=== PATIENT | female | born 1945 | race Caucasian/White ===

== ENCOUNTER → 2016-10-06 | Outpatient (CLI) | payer OTHER, MEDICARE ==
[~2016-10-06] MED LIST: AMLO5TAB2 PO; AMOX1TAB11 PO; ASPI81TA45 PO; FAMO20TA27 PO; FLUT1DIS26 IH; GLYB5TAB6 PO; HUM100VI15 SQ; METO25TA2 PO; Prednisone PO; SIMV40TA PO
== END ==
LOC: RAD 15:13
PROVIDERS: ATTEND Internal Medicine Cardiovascular Disease
DX: J43.8 Other emphysema (principal); E13.9 Other specified diabetes mellitus without complications; I10 Essential (primary) hypertension; E78.4 Other hyperlipidemia; I73.9 Peripheral vascular disease, unspecified; R06.02 Shortness of breath
CPT/HCPCS: 93923

== ENCOUNTER → 2018-06-17 | Outpatient (CLI) | payer OTHER, MEDICARE ==
--- NOTE | 2018-06-17 10:50 | Diagnostic Imaging Report ---
INDICATION: Routine screening. COMPARISON is made with prior mammogram from 04/16/2016 and 02/11/2015. 2-D and 3-D bilateral screening mammography was performed with CAD. FINDINGS: Both breasts remain heterogeneously dense, limiting the sensitivity of mammography. Benign-appearing calcifications are noted throughout both breasts. Bilateral nodular densities appear stable. No dominant mass or malignant-appearing microcalcifications are seen. The axillae are unremarkable. IMPRESSION: BI-RADS category 2. No mammographic features suspicious for malignancy are identified. Dictated by: Dictated on workstation # [id number]
== END ==
LOC: RAD 07:41
PROVIDERS: ATTEND Internal Medicine
DX: Z12.31 Encounter for screening mammogram for malignant neoplasm of breast (principal)
CPT/HCPCS: 77067

== ENCOUNTER 2018-07-06 14:21 | Outpatient (CLI) | payer OTHER, MEDICARE ==
[~2018-07-06] VITALS: Ht 170.2 cm; Wt 94.8 kg
[2018-07-06] MEDS ORDERED: INSU100I34 SQ (14:41)
[2018-07-06] MEDS ORDERED: INSU200I SQ (14:41)
[2018-07-06] MEDS ORDERED: SIMV40TA4 PO (14:41)
[2018-07-06] MEDS ORDERED: METO-333 PO (14:41)
[2018-07-06] MEDS ORDERED: FENO160T12 PO (14:41)
[2018-07-06] MEDS ORDERED: LISI-552 PO (14:41)
[2018-07-06] MEDS ORDERED: OMEP40CA36 PO (14:41)
== END 2018-07-06 14:42 | disposition home or self-care (01) ==
LOC: PREOP 14:21
PROVIDERS: ATTEND Surgery
DX: Z01.818 Encounter for other preprocedural examination (principal)

== ENCOUNTER 2018-07-12 08:53 | Day surgery (SDC) | payer OTHER, MEDICARE ==
[~2018-07-12] VITALS: Ht 170.2 cm; Wt 94.8 kg
[~2018-07-12 08:53] MED LIST changes: +FENO160T12 PO; +INSU100I34 SQ; +INSU200I SQ; +LISI-552 PO; +METO-333 PO; +OMEP40CA36 PO; +SIMV40TA4 PO
--- OUTSIDE RECORDS SUMMARY | 2018-07-12 08:58 | XMS REPORT | Clinical Summary ---
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 Active 10/16 Donna Cadena Diabetes mellitus without mention of complication, type I [juvenile type], not stated as uncontrolled HYPERTENSION 401.1 Active Donna Cadena Benign essential hypertension HYPERCHOLESTEROLEMIA 272.0 Active Donna Cadena Pure hypercholesterolemia ADENOCARCINOMA, COLON 153.9 Active Donna Cadena Malignant neoplasm of colon, unspecified CORONARY ATHEROSCLEROSIS, [place] VESSEL 414.01 Active Donna Cadena Coronary atherosclerosis of [place] coronary artery CHEST PAIN, ATYPICAL 786.59 Resolved Donna Cadena Other chest pain DYSPNEA 786.09 Active Donna Cadena Other dyspnea and respiratory abnormality BACK PAIN 724.5 Active Donna Cadena Backache, unspecified ABDOMINAL AORTIC ANEURYSM WITHOUT MENTION OF RUPTURE 441.4 Resolved Donna Cadena Abdominal aortic aneurysm without mention of rupture COUGH 786.2 Resolved Donna Cadena Cough BRONCHITIS, ACUTE 466.0 Resolved Donna Yessenia Cadena Acute bronchitis Medication List Medication Instructions Start Date Stop Date Generic Name NDC Status Provider Patient Instruction LASIX 20 MG TAB 1 PO Daily prn swelling FUROSEMIDE 55384431099 Active Donna Yessenia Cadena NOVOLOG MIX 70/30 (70-30) 100 UNIT/ML SUSP 65 units BID and 20 units at noon INSULIN ASPART PROT & ASPART 69658338396 Active Donnahelene Cadena TUSSIONEX PENNKINETIC ER 10-8 MG/5ML LQCR 1 tsp PO BID prn cough HYDROCOD POLST-CHLORPHEN POLST 32187605235 No Longer Active Donnahelene Cadena PREDNISONE 10 MG TAB 2 PO at one time once daily for 5 days 01/05 PREDNISONE 95063310908 No Longer Active Donna Yessenia Cadena CEFDINIR 300 MG CAPS 1 PO BID CEFDINIR 58205072560 No Longer Active Donna Yessenia Cadena GABAPENTIN 100 MG CAPS 1 PO TID GABAPENTIN 07901094236 Active Donnahelene Cadena GLIPIZIDE ER 5 MG [id number] 2 PO once daily GLIPIZIDE 41119239318 Active Donna Cadena AMOXICILLIN-POT CLAVULANATE 500-125 MG TABS 1 PO BID WIITH MEALS X 5 DAYS AMOXICILLIN-POT CLAVULANATE 69270573134 No Longer Active Donna Cadena PREDNISONE 10 MG TABS 60MG DAILY X 1 DAY, THEN 50MG DAILY X 1, THEN 40MG DAILY X 1, THEN 30MG DAILY X 1, THEN 20MG DAILY X 1, THEN 10MG DAILY X 1 10/18 PREDNISONE 83845458225 No Longer Active Donnahelene Cadena ADVAIR DISKUS 250-50 MCG/DOSE AEPB 1 PUFF BID FLUTICASONE-SALMETEROL 81725740287 No Longer Active Donna Yessenia Cadena ADVAIR DISKUS 250-50 MCG/DOSE MISC 1 Puff BID FLUTICASONE- SALMETEROL 97334388337 Active Donna Cadena PROAIR HFA 108 (90 BASE) MCG/ACT AERS 2 puff Q4 hrs prn wheezing and shortness of breath ALBUTEROL SULFATE 67549082043 Active Donna Cadean FLUTICASONE PROPIONATE 50 MCG/ACT SUSP 1 PUFF BID FLUTICASONE PROPIONATE 33185723541 No Longer Active Donna Cadena SIMVASTATIN 40 MG TABS 1 PO DAILY SIMVASTATIN 86860096396 Active Donna Cadena FAMOTIDINE 20 MG TABS 1 PO BID FAMOTIDINE 08355795209 Active Donna Cadena AMLODIPINE BESYLATE 5 MG TABS 1 PO AT HS AMLODIPINE BESYLATE 99708876329 Active Judith Reilly ASPIRIN 81 MG TAB 1 PO DAILY ASPIRIN 08286157607 Active Donna Cadena METOPROLOL TARTRATE 25 MG TABS 1 PO BID METOPROLOL TARTRATE 75628426524 Active Judith Reilly GLYBURIDE 5 MG TABS TAKE 2 TABS PO BID GLYBURIDE 13488528908 No Longer Active Donna Cadena Immunizations Vaccine Administration Date Value Standard Description pneumococcal immunization administered Done pneumococcal polysaccharide vaccine, 23 valent Influenza vaccine given done influenza virus vaccine, unspecified formulation Vital Signs Date Name Value Unit Range Description blood pressure, diastolic - 8462-4 72 mm[Hg] BP [place] blood pressure, systolic - 8480-6 134 mm[Hg] BP sys pulse rate E&M - 8867-4 80 /min Heart rate respiratory rate E&M - 9279-1 14 /min Resp rate temperature E&M 98.0 [degF] Body temperature weight E&M - 3141-9 219 [lb_av] Weight Measured blood pressure, diastolic - 8462-4 78 mm[Hg] BP [place] blood pressure, systolic - 8480-6 137 mm[Hg] BP sys pulse rate E&M - 8867-4 102 /min Heart rate respiratory rate E&M - 9279-1 14 /min Resp rate temperature E&M 98.1 [degF] Body temperature weight E&M - 3141-9 211 [lb_av] Weight Measured blood pressure, diastolic - 8462-4 76 mm[Hg] BP [place] blood pressure, systolic - 8480-6 134 mm[Hg] BP sys pulse rate E&M - 8867-4 68 /min Heart rate respiratory rate E&M - 9279-1 14 /min Resp rate weight E&M - 3141-9 220 [lb_av] Weight Measured blood pressure, diastolic - 8462-4 72 mm[Hg] BP [place] blood pressure, systolic - 8480-6 138 mm[Hg] BP sys pulse rate E&M - 8867-4 78 /min Heart rate respiratory rate E&M - 9279-1 14 /min Resp rate temperature E&M 98.2 [degF] Body temperature weight E&M - 3141-9 218 [lb_av] Weight Measured blood pressure, diastolic - 8462-4 70 mm[Hg] BP [place] blood pressure, systolic - 8480-6 160 mm[Hg] BP sys height E&M - 8302-2 67 [in_us] Bdy height pulse rate E&M - 8867-4 80 /min Heart rate respiratory rate E&M - 9279-1 14 /min Resp rate weight E&M - 3141-9 220 [lb_av] Weight Measured Diagnostic Results Date Name Value Unit Range Description Clinical Lists Update: BMP,HGA1C - Chemistry calcium, serum 8.4 mg/dL chloride, serum 107 mmol/L carbon dioxide, venous blood 21 mmol/L creatinine, serum 0.84 mg/dL urea nitrogen, blood 14 mg/dL potassium, serum 3.9 mmol/L sodium, serum 138 mmol/L glucose, plasma fasting 223 mg/dL Estimated Glomerular Filtration Rate (calc) >60 mL/min/1.73m2 hemoglobin A1C, blood, as % of total hemoglobin 8.5 % Clinical Lists Update: CBC,CMP,FLP,TSH,HGA1C - Chemistry thyroid stimulating hormone, serum 2.02 u[iU]/mL hemoglobin A1C, blood, as % of total hemoglobin 9.9 % HDL cholesterol, serum 29.0 mg/dL creatinine, serum 1.1 mg/dL carbon dioxide, venous blood 28.0 mmol/L cholesterol, serum 129 mg/dL chloride, serum 100 mmol/L calcium, serum 9.0 mg/dL urea nitrogen, blood 15 mg/dL alkaline phosphatase, serum 86 U/L albumin, serum 3.8 g/dL potassium, serum 4.2 mmol/L protein, total, serum 6.5 g/dL aspartate aminotransferase (SGOT), serum 15 U/L alanine aminotransferase (SGPT), serum 15 U/L bilirubin, serum, total 0.4 mg/dL triglyceride, serum, fasting 426 mg/dL sodium, serum 134 mmol/L anion gap, serum 10 cholesterol/HDL ratio, serum, percent 4.4 Estimated Glomerular Filtration Rate (calc) 50 mL/min/1.73m2 glucose, plasma fasting 329 mg/dL Clinical Lists Update: CBC,CMP,FLP,TSH,HGA1C - Hematology red blood cell distribution width 14.9 % mean corpuscular volume, RBC 89 fL leukocyte count, blood 7.9 10*3/mm3 erythrocyte (RBC) count 4.56 10*6/mm3 platelet count 270 10*3/mm3 hemoglobin, blood 12.9 g/dL hematocrit, blood 41 % Clinical Lists Update: [facility] - Chemistry very low density lipoproteins 105 mg/dL triglyceride, serum, fasting 525 mg/dL bilirubin, serum, total 0.4 mg/dL alanine aminotransferase (SGPT), serum 18 U/L aspartate aminotransferase (SGOT), serum 17 U/L protein, total, serum 7.1 g/dL LDL cholesterol, serum 54 mg/dL thyroid stimulating hormone, serum 2.30 u[iU]/mL HDL cholesterol, serum 24 mg/dL cholesterol, serum 176 mg/dL alkaline phosphatase, serum 89 U/L albumin, serum 3.7 g/dL Clinical Lists Update: IN [facility] - Coagulation international normalized ratio (INR) 1.0 prothrombin time (patient) 12.7 s Clinical Lists Update: [facility] - Hematology red blood cell distribution width 12.7 % platelet count 218 10*3/mm3 erythrocyte (RBC) count 4.29 10*6/mm3 hematocrit, blood 38 % hemoglobin, blood 12.5 g/dL mean corpuscular volume, RBC 87 fL leukocyte count, blood 8.5 10*3/mm3 Clinical Lists Update: IN [facility] - Urinalysis pH, urine, semiquantitative 5 nitrite, urine, semiquantitative neg ketones, urine, by test strip 3+ bilirubin, urine neg glucose, urine, semiquantitative neg specific gravity, urine 1.015 urobilinogen, urine, semiquantitative (dipstick) normal appearance, urine Clear Yellow WBC urine on microscopy 10-25 {Cells}/[HPF] RBC urine by microscopy none bacteria, urine microscopy large protein, urine, semiquantitative (dipstick) 1+ mucus on urinalysis neg blood in urine (hemoglobin) by dipstick 1+ epithelial cells, urine 0-2 /[LPF] Encounters Code Encounter Date Provider Facility CPT-42740 Ofc Vst, Est Level III 16:52:20 CDT Donna Cadena DO, FACMaura CPT-09148 Ofc Vst, Est Level III 20:32:35 CDT Donna Cadena DO FACP CPT-97779 Ofc Vst, Est Level IV 17:23:36 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
--- OUTSIDE RECORDS SUMMARY | 2018-07-12 08:59 | XMS REPORT | Clinical Summary ---
Author Author User, [employer] Donna Cadena DO, FACP Address Unknown Phone [...] Malignant neoplasm of colon, unspecified CORONARY ATHEROSCLEROSIS, [place] VESSEL 414.01 Active Donna Cadena Coronary atherosclerosis of [place] coronary artery CHEST PAIN, ATYPICAL 786.59 Resolved Donna Cadena Other chest pain DYSPNEA 786.09 Active Donna Cadena Other dyspnea and respiratory abnormality BACK PAIN 724.5 Active Donna Cadena Backache, unspecified ABDOMINAL AORTIC ANEURYSM WITHOUT MENTION OF RUPTURE 441.4 Resolved Donna Cadena Abdominal aortic aneurysm without mention of rupture COUGH 786.2 Resolved Donna Cadena Cough BRONCHITIS, ACUTE 466.0 Resolved Donna Cadena Acute bronchitis Medication List Medication Instructions Start Date Stop Date Generic Name NDC Status Provider Patient Instruction LASIX 20 MG TAB 1 PO Daily prn swelling FUROSEMIDE 73383570414 Active Donna Cadena NOVOLOG MIX 70/30 (70-30) 100 UNIT/ML SUSP 65 units BID and 20 units at noon INSULIN ASPART PROT & ASPART 60978589198 Active Donna Cadena TUSSIONEX PENNKINETIC ER 10-8 MG/5ML LQCR 1 tsp PO BID prn cough HYDROCOD POLST-CHLORPHEN POLST 63811293238 No Longer Active Donna Cadena PREDNISONE 10 MG TAB 2 PO at one time once daily for 5 days 01/05 PREDNISONE 81391999292 No Longer Active Donna Cadena CEFDINIR 300 MG CAPS 1 PO BID CEFDINIR 17367505236 No Longer Active Donna Cadena GABAPENTIN 100 MG CAPS 1 PO TID GABAPENTIN 52023207803 Active Judith Reilly GLIPIZIDE ER 5 MG [id number] 2 PO once daily GLIPIZIDE 90942594906 Active Donna Cadena AMOXICILLIN-POT CLAVULANATE 500-125 MG TABS 1 PO BID WIITH MEALS X 5 DAYS AMOXICILLIN-POT CLAVULANATE 78266076583 No Longer Active Donna Cadena PREDNISONE 10 MG TABS 60MG DAILY X 1 DAY, THEN 50MG DAILY X 1, THEN 40MG DAILY X 1, THEN 30MG DAILY X 1, THEN 20MG DAILY X 1, THEN 10MG DAILY X 1 10/18 PREDNISONE 74352817626 No Longer Active Donna Cadena ADVAIR DISKUS 250-50 MCG/DOSE AEPB 1 PUFF BID FLUTICASONE-SALMETEROL 46634593621 No Longer Active Donna Cadena ADVAIR DISKUS 250-50 MCG/DOSE MISC 1 Puff BID FLUTICASONE- SALMETEROL 85807280301 Active Donna Cadena PROAIR HFA 108 (90 BASE) MCG/ACT AERS 2 puff Q4 hrs prn wheezing and shortness of breath ALBUTEROL SULFATE 44323032611 Active Donna Cadena FLUTICASONE PROPIONATE 50 MCG/ACT SUSP 1 PUFF BID FLUTICASONE PROPIONATE 77936482631 No Longer Active Donna Cadena SIMVASTATIN 40 MG TABS 1 PO DAILY SIMVASTATIN 89504528951 Active oDnna Cadena FAMOTIDINE 20 MG TABS 1 PO BID FAMOTIDINE 58579443897 Active Donna Cadena AMLODIPINE BESYLATE 5 MG TABS 1 PO AT HS AMLODIPINE BESYLATE 60661015859 Active Judith Reilly ASPIRIN 81 MG TAB 1 PO DAILY ASPIRIN 52134236811 Active Donna Cadena METOPROLOL TARTRATE 25 MG TABS 1 PO BID METOPROLOL TARTRATE 55776056838 Active Judith Reilly GLYBURIDE 5 MG TABS TAKE 2 TABS PO BID GLYBURIDE 67583047690 No Longer Active Donna Cadena Immunizations Vaccine [...] Description Clinical Lists Update: BMP,HGA1C - Chemistry Estimated Glomerular Filtration Rate (calc) >60 mL/min/1.73m2 glucose, plasma fasting 223 mg/dL sodium, serum 138 mmol/L potassium, serum 3.9 mmol/L urea nitrogen, blood 14 mg/dL creatinine, serum 0.84 mg/dL carbon dioxide, venous blood 21 mmol/L chloride, serum 107 mmol/L calcium, serum 8.4 mg/dL hemoglobin A1C, blood, as % of total hemoglobin 8.5 % Clinical Lists Update: CBC,CMP,FLP,TSH,HGA1C - Chemistry Estimated Glomerular Filtration Rate (calc) 50 mL/min/1.73m2 glucose, plasma fasting 329 mg/dL cholesterol/HDL ratio, serum, percent 4.4 anion gap, serum 10 sodium, serum 134 mmol/L triglyceride, serum, fasting 426 mg/dL bilirubin, serum, total 0.4 mg/dL alanine aminotransferase (SGPT), serum 15 U/L aspartate aminotransferase (SGOT), serum 15 U/L protein, total, serum 6.5 g/dL potassium, serum 4.2 mmol/L thyroid stimulating hormone, serum 2.02 u[iU]/mL hemoglobin A1C, blood, as % of total hemoglobin 9.9 % HDL cholesterol, serum 29.0 mg/dL creatinine, serum 1.1 mg/dL carbon dioxide, venous blood 28.0 mmol/L cholesterol, serum 129 mg/dL chloride, serum 100 mmol/L calcium, serum 9.0 mg/dL urea nitrogen, blood 15 mg/dL alkaline phosphatase, serum 86 U/L albumin, serum 3.8 g/dL Clinical Lists Update: CBC,CMP,FLP,TSH,HGA1C - Hematology mean corpuscular volume, RBC 89 fL leukocyte count, blood 7.9 10*3/mm3 red blood cell distribution width 14.9 % erythrocyte (RBC) count 4.56 10*6/mm3 platelet count 270 10*3/mm3 hemoglobin, blood 12.9 g/dL hematocrit, blood 41 % Clinical Lists Update: IN PT LABS - Chemistry HDL cholesterol, serum 24 mg/dL cholesterol, serum 176 mg/dL alkaline phosphatase, serum 89 U/L albumin, serum 3.7 g/dL thyroid stimulating hormone, serum 2.30 u[iU]/mL LDL cholesterol, serum 54 mg/dL protein, total, serum 7.1 g/dL aspartate aminotransferase (SGOT), serum 17 U/L alanine aminotransferase (SGPT), serum 18 U/L bilirubin, serum, total 0.4 mg/dL very low density lipoproteins 105 mg/dL triglyceride, serum, fasting 525 mg/dL Clinical Lists Update: IN PT LABS - Coagulation international normalized ratio (INR) 1.0 prothrombin time (patient) 12.7 s Clinical Lists Update: IN PT LABS - Hematology red blood cell distribution width 12.7 % hemoglobin, blood 12.5 g/dL mean corpuscular volume, RBC 87 fL hematocrit, blood 38 % leukocyte count, blood 8.5 10*3/mm3 platelet count 218 10*3/mm3 erythrocyte (RBC) count 4.29 10*6/mm3 Clinical Lists Update: IN PT LABS - Urinalysis pH, urine, semiquantitative 5 nitrite, urine, semiquantitative neg ketones, urine, by test strip 3+ bilirubin, urine neg glucose, urine, semiquantitative neg specific gravity, urine 1.015 urobilinogen, urine, semiquantitative (dipstick) normal appearance, urine Clear Yellow WBC urine on microscopy 10-25 {Cells}/[HPF] RBC urine by microscopy none bacteria, urine microscopy large mucus on urinalysis neg blood in urine (hemoglobin) by dipstick 1+ protein, urine, semiquantitative (dipstick) 1+ epithelial cells, urine 0-2 /[LPF] Encounters Code Encounter Date Provider Facility CPT-90335 Ofc Vst, Est Level III 16:52:20 CDT Donna Cadena DO, FACP CPT-42475 Ofc Vst, Est Level III 20:32:35 CDT Donna Cadena DO, FACP CPT-36774 Ofc Vst, Est Level IV 17:23:36 [employer] Donna Cadena DO, FACP CPT-72505 Ofc Vst, New Level IV 17:25:17 [employer] Donna Cadena DO, FACMaura Procedures Code Procedure Name Date Entry Date Standard Description CPT-G0439 Medicare Annual Wellness Visit 15:27:42 CDT
--- OUTSIDE RECORDS SUMMARY | 2018-07-12 09:01 | XMS REPORT | Clinical Summary ---
Author Author User, [place] Donna Cadena DO, FACP Address Unknown Phone [...] Malignant neoplasm of colon, unspecified CORONARY ATHEROSCLEROSIS, [place] VESSEL 414.01 Active Donna Cadena Coronary atherosclerosis of [place] coronary artery CHEST PAIN, ATYPICAL 786.59 Resolved [...] TAB 1 PO Daily prn swelling FUROSEMIDE 11918319175 Active Donna Cadena NOVOLOG MIX 70/30 (70-30) 100 UNIT/ML SUSP 65 units BID and 20 units at noon INSULIN ASPART PROT & ASPART 53924508436 Active Donna Cadena TUSSIONEX PENNKINETIC ER 10-8 MG/5ML LQCR 1 tsp PO BID prn cough HYDROCOD POLST-CHLORPHEN POLST 99576919932 No Longer Active Donna Cadena PREDNISONE 10 MG TAB 2 PO at one time once daily for 5 days 01/05 PREDNISONE 89661911202 No Longer Active Donna Cadena CEFDINIR 300 MG CAPS 1 PO BID CEFDINIR 69478049008 No Longer Active Donna Cadena GABAPENTIN 100 MG CAPS 1 PO TID GABAPENTIN 76666078406 Active Judith Reilly GLIPIZIDE ER 5 MG [id number] 2 PO once daily GLIPIZIDE 84571763117 Active Donna Cadena AMOXICILLIN-POT CLAVULANATE 500-125 MG TABS 1 PO BID WIITH MEALS X 5 DAYS AMOXICILLIN-POT CLAVULANATE 39094841927 No Longer Active Donna Cadena PREDNISONE 10 MG TABS 60MG DAILY X 1 DAY, THEN 50MG DAILY X 1, THEN 40MG DAILY X 1, THEN 30MG DAILY X 1, THEN 20MG DAILY X 1, THEN 10MG DAILY X 1 10/18 PREDNISONE 45456950350 No Longer Active Donna Cadena ADVAIR DISKUS 250-50 MCG/DOSE AEPB 1 PUFF BID FLUTICASONE-SALMETEROL 62918129105 No Longer Active Donna Cadena ADVAIR DISKUS 250-50 MCG/DOSE MISC 1 Puff BID FLUTICASONE- SALMETEROL 65629235567 Active Donna Cadena PROAIR HFA 108 (90 BASE) MCG/ACT AERS 2 puff Q4 hrs prn wheezing and shortness of breath ALBUTEROL SULFATE 35059636248 Active Donna Cadena FLUTICASONE PROPIONATE 50 MCG/ACT SUSP 1 PUFF BID FLUTICASONE PROPIONATE 49550379548 No Longer Active Donna Cadena SIMVASTATIN 40 MG TABS 1 PO DAILY SIMVASTATIN 44957028902 Active Judith Reilly FAMOTIDINE 20 MG TABS 1 PO BID FAMOTIDINE 18876439127 Active Donna Cadena AMLODIPINE BESYLATE 5 MG TABS 1 PO AT HS AMLODIPINE BESYLATE 75798502644 Active Judith Reilly ASPIRIN 81 MG TAB 1 PO DAILY ASPIRIN 59859255186 Active Donna Cadena METOPROLOL TARTRATE 25 MG TABS 1 PO BID METOPROLOL TARTRATE 89705455331 Active Judith Reilly GLYBURIDE 5 MG TABS TAKE 2 TABS PO BID GLYBURIDE 34635978408 No Longer Active Donna Cadena Immunizations Vaccine [...] /[LPF] Encounters Code Encounter Date Provider Facility CPT-96167 Ofc Vst, Est Level III 16:52:20 CDT Donna Cadena DO, FACMaura CPT-38887 Ofc Vst, Est Level III 20:32:35 CDT Donna Cadena DO, FACP CPT-83340 Ofc Vst, Est Level IV 17:23:36 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
--- OUTSIDE RECORDS SUMMARY | 2018-07-12 09:01 | XMS REPORT | Clinical Summary ---
Author Author User, [employer] Donna Cadena DO, FACP Address Unknown Phone [...] Malignant neoplasm of colon, unspecified CORONARY ATHEROSCLEROSIS, [place] VESSEL 414.01 Active Donna Cadena Coronary atherosclerosis of [place] coronary artery CHEST PAIN, ATYPICAL 786.59 Resolved [...] TAB 1 PO Daily prn swelling FUROSEMIDE 48719772423 Active Donna Cadena NOVOLOG MIX 70/30 (70-30) 100 UNIT/ML SUSP 65 units BID and 20 units at noon INSULIN ASPART PROT & ASPART 42628269318 Active Donna Cadena TUSSIONEX PENNKINETIC ER 10-8 MG/5ML LQCR 1 tsp PO BID prn cough HYDROCOD POLST-CHLORPHEN POLST 32129451024 No Longer Active Donna Cadena PREDNISONE 10 MG TAB 2 PO at one time once daily for 5 days 01/05 PREDNISONE 63159644806 No Longer Active Donna Cadena CEFDINIR 300 MG CAPS 1 PO BID CEFDINIR 57738888965 No Longer Active Donna Cadena GABAPENTIN 100 MG CAPS 1 PO TID GABAPENTIN 19351020247 Active Judith Reilly GLIPIZIDE ER 5 MG [id number] 2 PO once daily GLIPIZIDE 33455596984 Active Donna Cadena AMOXICILLIN-POT CLAVULANATE 500-125 MG TABS 1 PO BID WIITH MEALS X 5 DAYS AMOXICILLIN-POT CLAVULANATE 32830788775 No Longer Active Donna Cadena PREDNISONE 10 MG TABS 60MG DAILY X 1 DAY, THEN 50MG DAILY X 1, THEN 40MG DAILY X 1, THEN 30MG DAILY X 1, THEN 20MG DAILY X 1, THEN 10MG DAILY X 1 10/18 PREDNISONE 52228731359 No Longer Active Donna Cadena ADVAIR DISKUS 250-50 MCG/DOSE AEPB 1 PUFF BID FLUTICASONE-SALMETEROL 47030013206 No Longer Active Donna Cadena ADVAIR DISKUS 250-50 MCG/DOSE MISC 1 Puff BID FLUTICASONE- SALMETEROL 38634859179 Active Donna Cadena PROAIR HFA 108 (90 BASE) MCG/ACT AERS 2 puff Q4 hrs prn wheezing and shortness of breath ALBUTEROL SULFATE 56585615854 Active Donna Cadena FLUTICASONE PROPIONATE 50 MCG/ACT SUSP 1 PUFF BID FLUTICASONE PROPIONATE 79493715019 No Longer Active Donna Cadena SIMVASTATIN 40 MG TABS 1 PO DAILY SIMVASTATIN 55180174990 Active Donna Cadena FAMOTIDINE 20 MG TABS 1 PO BID FAMOTIDINE 51753075985 Active Donna Cadena AMLODIPINE BESYLATE 5 MG TABS 1 PO AT HS AMLODIPINE BESYLATE 21481339574 Active Judith Reilly ASPIRIN 81 MG TAB 1 PO DAILY ASPIRIN 89989913044 Active Donna Cadena METOPROLOL TARTRATE 25 MG TABS 1 PO BID METOPROLOL TARTRATE 60376707514 Active Judith Reilly GLYBURIDE 5 MG TABS TAKE 2 TABS PO BID GLYBURIDE 88366402204 No Longer Active Donna Cadena Immunizations Vaccine [...] /[LPF] Encounters Code Encounter Date Provider Facility CPT-35522 Ofc Vst, Est Level III 16:52:20 CDT Donna Cadena DO, FACP CPT-79721 Ofc Vst, Est Level III 20:32:35 CDT Donna Cadena DO, FACP CPT-38184 Ofc Vst, Est Level IV 17:23:36 [employer] 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
--- OUTSIDE RECORDS SUMMARY | 2018-07-12 09:03 | XMS REPORT | Continuity of Care Document ---
Author Author [facility] Organization [facility] Address Unknown Phone Unavailable Allergies Active Description Code Type Severity Reaction Onset Reported/Identified Relationship to Patient Clinical Status Yes No Known Drug Allergies [id number] Drug Allergy Unknown N/A 10/16/2014 Medications Medication Packaging Start Date Stop Date Route Dosage Sig NOVOLIN 70/30 ORAL 06/09/2013 06/06/2014 ORAL 4 [id number] 55u BID METOPROLOL TARTRATE ORAL 201306/06/2014 ORAL 180 [id number] twice daily NORVASC ORAL 01/22/2014 ORAL 3030 at bedtime ZOCOR ORAL 03/29/2014 ORAL 9090 daily GLYBURIDE ORAL 04/25/2014 06/28/2014 ORAL 445376 twice daily AMLODIPINE BESYLATE ORAL 201307/02/2014 ORAL 3030 at bedtime NOVOLIN 70/30 Subcutaneous 201308/20/2014 Subcutaneous 4 [id number] 55u BID METOPROLOL TARTRATE ORAL 201308/20/2014 ORAL 180 [id number] twice daily SIMVASTATIN Oral 06/25/2014 08/20/2014 Oral 9090 GLYBURIDE ORAL 06/28/2014 08/20/2014 ORAL 333574 twice daily AMLODIPINE BESYLATE ORAL 201307/09/2014 ORAL 3030 at bedtime AMLODIPINE BESYLATE ORAL 201308/20/2014 ORAL 3030 at bedtime SIMVASTATIN Oral 08/20/2014 Oral 9090 daily NOVOLIN 70/30 Subcutaneous 2013 Subcutaneous [id number] 65uBID METOPROLOL TARTRATE ORAL 2013 ORAL 180 [id number] twice daily GLYBURIDE ORAL 08/20/2014 ORAL 068468 twice daily AMLODIPINE BESYLATE ORAL 2013 ORAL 9090 at bedtime Problems Date Dx Coded Attending Type Code Diagnosis Diagnosed By 10/18/2014 JONH CORNELL DO Ot 250.02 DIAB LAILA WO COMPL, TYPE II OR UNSPEC TY 10/18/2014 JONH CORNELL DO Ot 272.0 PURE HYPERCHOLESTEROLEM 10/18/2014 NATY CORNELL DOI Ot 272.1 PURE HYPERGLYCERIDEMIA 10/18/2014 NATY CORNELL DOI Ot 278.00 OBESITY, NOS 10/18/2014 NATY CORNELL DOI Ot 300.29 OTHER ISOLATED OR SPECIFIC PHOBIAS 10/18/2014 JONH CORNELL DO Ot 327.23 OBSTRUCTIVE SLEEP APNEA (ADULT) (PEDIATR 10/18/2014 NATY CORNELL DOI Ot 401.9 HYPERTENSION NOS 10/18/2014 NATY CORNELL DOI Ot 412 OLD MYOCARDIAL INFARCT 10/18/2014 NATY CORNELL DOI Ot 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 10/18/2014 JONH CORNELL DO Ot 491.20 OBSTR CHRONIC BRONCHITIS, W/O EXACERBATI 10/18/2014 NATY CORNELL DOI Ot 493.90 ASTHMA, UNSPECIFIED 10/18/2014 JONH CORNELL DO Ot 530.81 ESOPHAGEAL REFLUX 10/18/2014 JONH CORNELL DO Ot 553.3 DIAPHRAGMATIC HERNIA 10/18/2014 NATY CORNELL DOI Ot 724.5 BACKACHE NOS 10/18/2014 NATY CORNELL DOI Ot 786.59 10/18/2014 JONH CORNELL DO Ot V10.05 HX OF COLONIC MALIGNANCY 10/18/2014 JONH CORNELL DO Ot V15.82 HISTORY OF TOBACCO USE 10/18/2014 JONH CORNELL DO Ot V45.72 ACQRD ABSENCE INTESTINE - LARGE/SMALL 10/18/2014 JONH CORNELL DO Ot V45.77 ACQRD ABSENCE OF GENITAL ORGANS 10/18/2014 JONH CORNELL DO Ot V45.81 AORTOCORONARY BYPASS 10/18/2014 JONH CORNELL DO Ot V58.67 LONG-TERM (CURRENT) USE OF INSULIN 10/18/2014 JONH CORNELL DO Ot V85.34 BODY MASS INDEX 34.0-34.9, ADULT 12/13/2014 Ot 574.20 12/13/2014 Ot 722.52 12/28/2014 JONH CORNELL DO Ot 441.4 01/16/2015 JONH CORNELL DO Ot 441.4 03/06/2015 JONH CORNELL DO Ot V76.12 10/23/2015 RENA PULLIAM, CONRADO L Ot E11.9 11/08/2015 RENA DO, CONRADO L Ot E11.9 11/25/2015 RENA DO, CONRADO L Ot E11.9 TYPE 2 DIABETES MELLITUS WITHOUT COMPLIC 04/16/2016 Ot 574.20 CHOLELITHIASIS NOS 04/16/2016 Ot 722.52 LUMB/ LUMBOSAC DISC DEGEN 04/16/2016 KRAIG PULLIAM JONH Ot 441.4 ABDOM AORTIC ANEURYSM 04/16/2016 KRAIG PULLIAM JONH Ot V76.12 OTH SCREEN MAMMO-MALIGN NEOPLASM OF [place]BALDO 04/16/2016 RENA PULLIAM, CONRADO L Ot E11.9 TYPE 2 DIABETES MELLITUS WITHOUT COMPLIC 04/22/2016 JONH CORNELL DO Ot Z12.31 ENCNTR SCREEN MAMMOGRAM FOR MALIGNANT NE 04/30/2016 Ot 574.20 CHOLELITHIASIS NOS 04/30/2016 Ot 722.52 LUMB/ LUMBOSAC DISC DEGEN 04/30/2016 KRAIG PULLIAM JONH Ot 441.4 ABDOM AORTIC ANEURYSM 04/30/2016 KRAIG PULLIAM JONH Ot V76.12 OTH SCREEN MAMMO-MALIGN NEOPLASM OF [place] 04/30/2016 RENA PULLIAM, CONRADO L Ot E11.9 TYPE 2 DIABETES MELLITUS WITHOUT COMPLIC 04/30/2016 JONH CORNELL DO Ot Z12.31 ENCNTR SCREEN MAMMOGRAM FOR MALIGNANT NE 04/30/2016 KRAIG PULLIAM JONH Ot Z12.31 ENCNTR SCREEN MAMMOGRAM FOR MALIGNANT NE 05/01/2016 NATY CORNELL DOI Ot Z12.31 ENCNTR SCREEN MAMMOGRAM FOR MALIGNANT NE 05/13/2016 KRAIG PULLIAM JONH Ot Z12.31 ENCNTR SCREEN MAMMOGRAM FOR MALIGNANT NE 08/31/2016 DOYLE DO, LOLITA D Ot R10.32 LEFT LOWER QUADRANT PAIN 09/01/2016 DOYLE DO, LOLITA D Ot R10.32 LEFT LOWER QUADRANT PAIN 09/01/2016 DOYLE DO, LOLITA D Ot R10.32 LEFT LOWER QUADRANT PAIN 09/11/2016 DOYLE DO, LOLITA D Ot R10.32 LEFT LOWER QUADRANT PAIN 10/07/2016 SHELLY MCGRATH FACC, LALI BERNARDP CCDS Ot E13.9 OTHER SPECIFIED DIABETES MELLITUS WITHOU 10/07/2016 SHELLY BERNARD, ALI FACP CCDS Ot E78.4 OTHER HYPERLIPIDEMIA 10/07/2016 SHELLY BERNARD, ALI FACP CCDS Ot I10 ESSENTIAL (PRIMARY) HYPERTENSION 10/07/2016 SHELLY MCGRATH [facility], ALI FACP CCDS Ot I73.9 PERIPHERAL VASCULAR DISEASE, UNSPECIFIED 10/07/2016 SHELLY BERNARD, ALI FACP CCDS Ot J43.8 OTHER EMPHYSEMA 10/07/2016 SHELLY MCGRATH [facility], ALI FACP CCDS Ot R06.02 SHORTNESS OF BREATH 10/21/2016 SHELLY MCGRATH [facility], ALI FACP CCDS Ot E13.9 OTHER SPECIFIED DIABETES MELLITUS WITHOU 10/21/2016 SHELLY BERNARD, ALI FACP CCDS Ot E78.4 OTHER HYPERLIPIDEMIA 10/21/2016 SHELLY MCGRATH [facility], ALI FACP CCDS Ot I10 ESSENTIAL (PRIMARY) HYPERTENSION 10/21/2016 SHELLY MCGRATH [facility], ALI FACP CCDS Ot I73.9 PERIPHERAL VASCULAR DISEASE, UNSPECIFIED 10/21/2016 SHELLY MCGRATH [facility], ALI FACP CCDS Ot J43.8 OTHER EMPHYSEMA 10/21/2016 SHELLY MCGRATH [facility], ALI FACP CCDS Ot R06.02 SHORTNESS OF BREATH 11/09/2016 SHELLY MCGRATH [facility], ALI FACP CCDS Ot E13.9 OTHER SPECIFIED DIABETES MELLITUS WITHOU 11/09/2016 SHELLY MCGRATH [facility], ALI FACP CCDS Ot E78.4 OTHER HYPERLIPIDEMIA 11/09/2016 SHELLY MCGRATH [facility], ALI FACP CCDS Ot I10 ESSENTIAL (PRIMARY) HYPERTENSION 11/09/2016 SHELLY MCGRATH [facility], ALI FACP CCDS Ot I73.9 PERIPHERAL VASCULAR DISEASE, UNSPECIFIED 11/09/2016 SHELLY MCGRATH [facility], ALI FACP CCDS Ot J43.8 OTHER EMPHYSEMA 11/09/2016 SHELLY MCGRATH [facility], ALI FACP CCDS Ot R06.02 SHORTNESS OF BREATH 06/17/2018 Ot 574.20 CHOLELITHIASIS NOS 06/17/2018 Ot 722.52 LUMB/ LUMBOSAC DISC DEGEN 06/17/2018 JONH CORNELL DO Ot 441.4 ABDOM AORTIC ANEURYSM 06/17/2018 JONH CORNELL DO Ot V76.12 OTH SCREEN MAMMO-MALIGN NEOPLASM OF [place]BAL[place] 06/17/2018 CONRADO CHASE DO Nhung Ot E11.9 TYPE 2 DIABETES MELLITUS WITHOUT COMPLIC 06/17/2018 JONH CORNELL DO Ot Z12.31 ENCNTR SCREEN MAMMOGRAM FOR MALIGNANT NE 06/17/2018 LOLITA DOYLE DO Ot R10.32 LEFT LOWER QUADRANT PAIN 06/17/2018 SHELLY MCGRATH FACC, ALI FACP CCDS Ot E13.9 OTHER SPECIFIED DIABETES MELLITUS WITHOU 06/17/2018 SHELLY MCGRATH FACC, ALI FACP CCDS Ot E78.4 OTHER HYPERLIPIDEMIA 06/17/2018 SHELLY MCGRATH FACC, ALI FACP CCDS Ot I10 ESSENTIAL (PRIMARY) HYPERTENSION 06/17/2018 SHELLY MCGRATH FACC, ALI FACP CCDS Ot I73.9 PERIPHERAL VASCULAR DISEASE, UNSPECIFIED 06/17/2018 SHELLY MCGRATH FACC, ALI FACP CCDS Ot J43.8 OTHER EMPHYSEMA 06/17/2018 SHELLY MCGRATH FACC, ALI FACP CCDS Ot R06.02 SHORTNESS OF BREATH 06/20/2018 JONH CORNELL DO Ot Z12.31 ENCNTR SCREEN MAMMOGRAM FOR MALIGNANT NE 07/06/2018 LOLITA DOYLE DO Ot Z01.818 ENCOUNTER FOR OTHER PREPROCEDURAL EXAMIN 07/06/2018 LOLITA DOYLE DO Ot Z01.818 ENCOUNTER FOR OTHER PREPROCEDURAL EXAMIN Procedures Code Description Performed By Performed On 37.22 LEFT HEART CARDIAC CATH 10/16/2014 88.42 CONTRAST AORTOGRAM 10/16/2014 88.45 CONTRAST RENAL ARTERIOGR 10/16/2014 88.53 LT HEART ANGIOCARDIOGRAM 10/16/2014 88.56 CORONAR ARTERIOGR-2 CATH 10/16/2014 Results There is no data. Encounters ACCT No. Visit Date/Time Discharge Status Pt. Type Provider Facility Loc./Unit Complaint [id number] 07/06/2018 14:21:00 07/06/2018 14:42:00 DIS Outpatient LOLITA DOYLE DO [facility] PREOP EGD/COLO [id number] 06/17/2018 07:41:00 06/17/2018 23:59:59 CLS Outpatient JONH CORNELL DO [facility] RAD SCREENING [id number] 10/06/2016 15:13:00 10/06/2016 23:59:59 CLS Outpatient SHELLY MCGRATH FACCLALI FACP CCDS [facility] RAD SOB,COPD [id number] 08/28/2016 08:57:00 08/28/2016 23:59:59 CLS Outpatient LOLITA DOYLE DO [facility] RAD ABD PAIN [id number] 04/16/2016 10:02:00 04/16/2016 23:59:59 CLS Outpatient CORNELL DO, JONH [facility] RAD SCREENING [id number] 11/26/2015 10:00:00 11/26/2015 23:59:59 CLS [facility]read[facility] [id number] 08/27/2015 09:52:00 11/25/2015 00:01:00 DIS Outpatient [facility] [id number] 02/11/2015 11:01:00 02/11/2015 23:59:59 CLS Outpatient CORNELL DO, JONH [facility] RAD SCREENING [id number] 01/23/2015 21:00:00 01/23/2015 23:59:59 CLS Preadmit JACK GREY DO [facility] SLEEP SNORING ISCHEMIC HEART DISEASE HTN EXCESSIVE DAYTI [id number] 12/06/2014 06:41:00 12/06/2014 23:59:59 CLS Outpatient CORNELL DO, JONH [facility] RAD ABDOMNIAL AORTIC ANYURSM [id number] 10/16/2014 12:30:00 10/18/2014 12:30:00 DIS Inpatient CORNELL DO, JONH [facility] CSD CHEST PAIN ANGINA [id number] 07/12/2018 11:00:00 PEN Preadmit LOLITA DOYLE DO [facility] ENDO SCREENING/HX COLON CA/GERD [id number] 12/13/2014 13:48:00 Document Registration [id number] 02/11/2015 11:02:01 ACT Document Registration [id number] 08/22/2014 12:02:36 08/22/2014 12:02:38 DIS Outpatient [id number] 08/20/2014 16:08:18 Document Registration [id number] 08/20/2014 16:08:17 Document Registration [id number] 08/20/2014 16:08:16 Document Registration [id number] 08/20/2014 16:08:15 Document Registration [id number] 08/20/2014 13:59:35 Document Registration [id number] 08/20/2014 13:59:34 Document Registration [id number] 08/20/2014 13:59:33 Document Registration [id number] 08/20/2014 13:59:32 Document Registration [id number] 08/20/2014 13:59:31 Document Registration [id number] 08/20/2014 13:59:30 Document Registration [id number] 08/20/2014 13:59:29 Document Registration [id number] 08/20/2014 13:59:28 Document Registration [id number] 08/20/2014 13:59:27 Document Registration [id number] 08/20/2014 13:59:26 Document Registration [id number] 08/20/2014 13:59:25 Document Registration [id number] 08/20/2014 13:59:24 Document Registration [id number] 08/20/2014 13:59:23 Document Registration [id number] 08/20/2014 13:59:22 Document Registration [id number] 08/20/2014 13:59:21 Document Registration [id number] 08/20/2014 13:59:20 Document Registration [id number] 08/20/2014 13:59:19 Document Registration [id number] 08/20/2014 13:59:16 Document Registration [id number] 08/20/2014 13:59:14 Document Registration [id number] 08/20/2014 13:57:47 Document Registration [id number] 08/20/2014 13:57:46 Document Registration [id number] 08/20/2014 13:57:45 Document Registration [id number] 08/20/2014 13:57:44 Document Registration [id number] 08/20/2014 13:57:43 Document Registration [id number] 08/20/2014 13:57:42 Document Registration [id number] 08/20/2014 13:56:30 Document Registration [id number] 08/20/2014 13:56:29 Document Registration [id number] 08/20/2014 13:56:26 Document Registration [id number] 08/20/2014 13:54:08 Document Registration [id number] 08/20/2014 13:54:07 Document Registration [id number] 08/20/2014 13:54:06 Document Registration [id number] 07/09/2014 20:18:53 Document Registration [id number] 07/09/2014 20:18:52 Document Registration [id number] 07/09/2014 20:18:50 Document Registration [id number] 07/09/2014 20:18:49 Document Registration [id number] 07/09/2014 20:18:48 Document Registration [id number] 07/09/2014 20:18:07 Document Registration [id number] 07/09/2014 20:18:06 Document Registration [id number] 07/02/2014 19:16:43 Document Registration [id number] 07/02/2014 19:16:36 Document Registration [id number] 07/02/2014 19:16:28 Document Registration [id number] 07/02/2014 19:16:21 Document Registration [id number] 07/02/2014 19:16:13 Document Registration [id number] 07/02/2014 19:16:06 Document Registration [id number] 07/02/2014 19:15:58 Document Registration [id number] 07/02/2014 19:15:51 Document Registration [id number] 07/02/2014 19:15:35 Document Registration [id number] 06/28/2014 19:16:05 Document Registration [id number] 06/28/2014 19:15:58 Document Registration [id number] 06/28/2014 19:15:50 Document Registration [id number] 06/28/2014 19:15:45 Document Registration [id number] 06/28/2014 19:15:40 Document Registration [id number] 06/28/2014 19:15:35 Document Registration [id number] 06/28/2014 19:15:28 Document Registration [id number] 06/28/2014 19:15:17 Document Registration [id number] 06/28/2014 19:13:51 Document Registration [id number] 06/28/2014 19:13:43 Document Registration [id number] 06/28/2014 19:13:35 Document Registration [id number] 06/25/2014 13:52:20 Document Registration [id number] 06/25/2014 13:52:12 Document Registration [id number] 06/25/2014 13:52:01 Document Registration [id number] 06/06/2014 09:06:06 Document Registration [id number] 06/06/2014 09:05:58 Document Registration [id number] 06/06/2014 09:05:52 Document Registration [id number] 06/06/2014 09:05:47 Document Registration [id number] 06/06/2014 09:05:41 Document Registration [id number] 06/06/2014 09:05:35 Document Registration [id number] 06/06/2014 09:05:28 Document Registration [id number] 06/06/2014 09:05:17 Document Registration [id number] 06/06/2014 09:03:53 Document Registration [id number] 06/06/2014 09:03:46 Document Registration [id number] 06/06/2014 09:03:35 Document Registration [id number] 06/06/2014 09:02:22 Document Registration [id number] 06/06/2014 09:02:16 Document Registration [id number] 06/06/2014 09:02:06 Document Registration [id number] 06/06/2014 09:01:39 Document Registration [id number] 06/06/2014 09:01:32 Document Registration
[2018-07-12] MEDS ORDERED: LACTATED RINGERS 1,000 ML IV STA (09:05)
[2018-07-12] MEDS ORDERED: HURRICAINE EXT TUBE (BENZOCAINE) XX ONE (09:15)
[2018-07-12 09:30] VITALS: BP 144/66
[2018-07-12] MEDS ORDERED: PROPOFOL INJECTION 50 ML IV ONE (09:34)
[2018-07-12] MEDS ORDERED: MIDAZOLAM 2 MG/2 ML (VERSED) VIAL ONE (09:35)
--- NOTE | 2018-07-12 10:08 | Progress Note-Pre Operative ---
Pre-Operative Progress Note H&P Reviewed The H&P was reviewed, patient examined and no changes noted. Date Seen by Provider: Jul 12, 2018 Time Seen by Provider: 10:08 Date H&P Reviewed: Jul 12, 2018 Time H&P Reviewed: : Pre-Operative Diagnosis: history colon cancer, gerd LOLITA DOYLE DO Jul 12, 2018 10:08
--- NOTE | 2018-07-12 10:57 | Progress Note-Post Operative ---
Post-Operative Progess Note Surgeon (s)/Collections Assistant (s) Surgeon LOLITA DOYLE DO Collections Assistant: na Pre-Operative Diagnosis history colon cancer, gerd Post-Operative Diagnosis reflux esophagitis, colon polyps x 3 Procedure & Operative Findings Date of Procedure 07/12/18 Procedure Performed/Findings colonoscopy with hot bx polypectomy x 3 egd c biopsies Anesthesia Type per clinic coordinator Estimated Blood Loss Estimated blood loss (mL): none Specimens/Packing Specimens Removed antrum, ge, descending colon polyp, sigmoid colon polyp x 2 LOLITA DOYLE DO Jul 12, 2018 10:57
--- NOTE | 2018-07-12 11:00 | Discharge Inst-Simple/Standard ---
Discharge Inst-Standard Patient Instructions/Follow Up Plan of Care/Instructions/FU: 2 weeks Carlotta Activity as Tolerated: Yes Discharge Diet: Regular Diet LOLITA DOYLE DO Jul 12, 2018 11:00
[2018-07-12 11:15] VITALS: BP 140/62
[2018-07-12 11:45] VITALS: BP 152/67
[2018-07-12 11:53] VITALS: BP 152/67
--- NOTE | 2018-07-12 13:07 | Anesthesia-General Post-Op ---
MAC Patient Condition Mental Status/LOC: Same as Preop Cardiovascular: Satisfactory Nausea/Vomiting: Absent Respiratory: Satisfactory Pain: Controlled Complications: Absent Post Op Complications Complications None Follow Up Care/Instructions Patient Instructions None needed. Anesthesiology Discharge Order Discharge Order Patient is doing well, no complaints, stable vital signs, no apparent adverse anesthesia problems. No complications reported per nursing. TALHA FAUST CRNA Jul 12, 2018 13:06
--- NOTE | 2018-07-12 15:22 | OPERATIVE REPORT ---
DATE OF SERVICE: 07/12/2018 PREOPERATIVE DIAGNOSES: Gastroesophageal reflux disease and history of colon cancer. POSTOPERATIVE DIAGNOSES: Colon polyps and reflux esophagitis. PROCEDURES: EGD with biopsies, colonoscopy with hot biopsy polypectomy x 3. SURGEON: Lolita Laguerre DO. ANESTHESIA: Per LEAD CLINICAL RESEARCH COORDINATOR. ESTIMATED BLOOD LOSS: None. COMPLICATIONS: None. INDICATIONS: The patient is a 72-year-old female, who has been having some reflux symptoms. She also has history of colon cancer and needs a screening colonoscopy. She understands risks and benefits of the procedure and wished to proceed with procedure. Consent was signed on the chart. DESCRIPTION OF PROCEDURE: The patient was taken to the endoscopy suite and placed in the left lateral recumbent position. Timeout was performed. Scope was inserted in the mouth, down the esophagus, stomach and into the duodenum without difficulty. There were no polyps, masses or ulcerations within the duodenum. Scope was slowly retracted back into the stomach where it was further insufflated. No polyps, masses or ulcerations. No significant erythematous changes. Biopsy of the antrum was obtained. Scope was retroflexed noting no other pathology. Scope was then slowly retracted back into the distal esophagus, which had some slight erythematous changes consistent with reflux esophagitis. Biopsy of the GE junction was obtained. Scope was then slowly retracted back and completely removed. The patient then had digital rectal exam performed. Some slight hemorrhoidal disease. Scope was then inserted and there were no palpable polyps, masses or ulcerations. The scope was then inserted in the rectum and advanced all the way into the end of the right colon where the anastomosis was visualized. There were no polyps, masses or ulcerations in the right colon. The scope was then slowly retracted back. There were no polyps, masses or ulcerations within the transverse colon. Within the descending colon, a small polyp was present, which hot biopsy polypectomy was performed. Scope was continuously retracted back into the sigmoid colon, which had two small polyps, which hot biopsy polypectomy was performed. Scope was continuously retracted back into the rectum, where it was also retroflexed noting no other pathology except for the hemorrhoidal disease. Scope was returned to its normal position, slowly withdrawn until completely removed. The patient tolerated the procedure well without any complications. She was taken to the recovery room in stable condition. RECOMMENDATIONS: The patient will need repeat colonoscopy in 5 years. If she has any problems prior to that, she should be reevaluated at that time. The patient also with her reflux would consider switching her to Protonix if the omeprazole is not giving her any symptoms. We will also await biopsy results. Also with internal hemorrhoids if they are symptomatic, could consider HET treatment. We will discuss all these with her on followup appointment. Job ID: [id number] DocumentID: [id number] Dictated Date: 07/12/2018 11:03:25 [employer] Date: 07/12/2018 15:21:19 Dictated By: LOLITA LAGUERRE DO
== END 2018-07-12 11:53 | disposition home or self-care (01) ==
LOC: ENDO 08:53
PROVIDERS: ATTEND Surgery
DX: Z12.11 Encounter for screening for malignant neoplasm of colon (principal); D12.4 Benign neoplasm of descending colon; D12.5 Benign neoplasm of sigmoid colon; K21.0 Gastro-esophageal reflux disease with esophagitis; Z85.038 Personal history of other malignant neoplasm of large intestine; E11.9 Type 2 diabetes mellitus without complications; I25.10 Atherosclerotic heart disease of native coronary artery without angina pectoris; I10 Essential (primary) hypertension; Z79.4 Long term (current) use of insulin; Z79.899 Other long term (current) drug therapy; Z87.891 Personal history of nicotine dependence; Z95.5 Presence of coronary angioplasty implant and graft; Z98.0 Intestinal bypass and anastomosis status
CPT/HCPCS: 82962; 88305

== ENCOUNTER → 2018-10-04 | Outpatient (CLI) | payer OTHER, MEDICARE ==
--- NOTE | 2018-10-04 09:31 | Diagnostic Imaging Report ---
INDICATION: Epigastric abdominal pain. TECHNIQUE: Multiple grayscale sonographic images were obtained of the right upper quadrant of the abdomen. CORRELATION STUDY: None FINDINGS: LIVER: There is uniform echotexture within the visualized portions of the liver. There is normal, hepatopedal direction of flow within the main portal vein. Liver size 16.4 cm. GALLBLADDER: There is a large, single mobile stone present. This measures approximately 2.5 cm. No significant gallbladder wall thickening and/or pericholecystic fluid. COMMON BILE DUCT: Nondilated at 5-6 mm. PANCREAS: Visualized portion unremarkable. Distal aspect obscured by overlying bowel gas. RIGHT KIDNEY: Measures 11.7 x 6.0 x 5.2 cm. No hydronephrosis. AORTA/IVC: Not well visualized. OTHER: None. IMPRESSION: 1. Large, single mobile gallstone. Dictated by: Dictated on workstation # [id number]
== END ==
LOC: RAD 07:51
PROVIDERS: ATTEND Surgery
DX: K80.20 Calculus of gallbladder without cholecystitis without obstruction (principal)
CPT/HCPCS: 76705

== ENCOUNTER → 2020-06-21 | Outpatient (CLI) | payer MEDICARE, OTHER ==
[~2020-06-21] MED LIST changes: +OMEP40CA27 PO; -OMEP40CA36 PO; +SIMV40TA25 PO; -SIMV40TA4 PO
== END ==
LOC: CARD 13:00
PROVIDERS: ATTEND Internal Medicine Cardiovascular Disease
DX: I25.10 Atherosclerotic heart disease of native coronary artery without angina pectoris (principal); I10 Essential (primary) hypertension; E11.9 Type 2 diabetes mellitus without complications; E78.49 Other hyperlipidemia
CPT/HCPCS: 93306

== ENCOUNTER → 2021-01-07 | Outpatient (CLI) | payer MEDICARE ==
[~2021-01-07] MED LIST changes: -LISI-552 PO; +LISI20TA26 PO
--- NOTE | 2021-01-07 12:29 | Diagnostic Imaging Report ---
INDICATION: Routine screening. Comparison is made with prior mammogram 06/17/2018 and 04/16/2016. 2-D and 3-D bilateral screening mammography was performed with CAD. Both breasts are heterogeneously dense, limiting the sensitivity of mammography. Benign parenchymal and vascular calcifications again noted bilaterally. Circumscribed nodules left breast appears stable. No spiculated mass or malignant appearing microcalcifications are seen. Axillae are unremarkable. IMPRESSION: BI-RADS Category 2 No mammographic features suspicious for malignancy are identified. ACR BI-RADS Category 2: Benign findings. Result letter will be mailed to the patient. Note: At least 10% of breast cancer is not imaged by mammography. Dictated by: Dictated on workstation # [id number]
== END ==
LOC: RAD 10:30
PROVIDERS: ATTEND Nurse Practitioner Family
DX: Z12.31 Encounter for screening mammogram for malignant neoplasm of breast (principal)
CPT/HCPCS: 77063; 77067

== ENCOUNTER → 2021-07-30 | Outpatient (CLI) | payer MEDICARE ==
[~2021-07-30] MED LIST changes: -OMEP40CA27 PO; +OMEP40CA6 PO
--- NOTE | 2021-07-30 09:54 | Diagnostic Imaging Report ---
INDICATION: Abdominal pain PROCEDURE: Ultrasound abdomen complete. TECHNIQUE: Multiple real-time grayscale images were obtained of the abdomen in various projections. There is hepatic steatosis. No focal liver lesion is seen. The gallbladder and bile ducts are normal. The pancreas is normal where seen. The tail is obscured by gas. The spleen and kidneys are normal. The aorta and IVC are normal. There is no ascites. IMPRESSION: Hepatic steatosis. No acute abnormality is seen. Dictated by: Dictated on workstation # [id number]
== END ==
LOC: RAD 08:07
PROVIDERS: ATTEND Surgery
DX: K76.0 Fatty (change of) liver, not elsewhere classified (principal)
CPT/HCPCS: 76700

== ENCOUNTER 2021-08-29 17:36 | Inpatient (IN) | payer MEDICARE ==
[~2021-08-29] VITALS: Ht 170.2 cm; Wt 93.0 kg
[~2021-08-29 17:36] MED LIST changes: -AMLO2.5T4 PO; -ASPI81TA64 PO; -ATOR40TA PO; -CLOP75TA28 PO; -MTP100TCR PO
[2021-08-29] MEDS ORDERED: ASPIRIN 81 MG CHEW (CHILDREN'S ASA) PO ONE (17:45)
[2021-08-29] MEDS ORDERED: NITROGLYCERIN 0.4 MG SL TABS BTL 25'S SL PRN ×2 (17:45→21:30)
--- NOTE | 2021-08-29 17:53 | ED Chest Pain ---
General Stated Complaint: CHEST DISCOMFORT Source: patient History of Present Illness Date Seen by Provider: Aug 29, 2021 Time Seen by Provider: 17:40 Initial Comments PT ARRIVES VIA POV FROM HOME C/O CHEST PAIN AND SHORTNESS OF BREATH--ESPECIALLY WITH ANY EXERTION STATES SHE WOKE UP WEDNESDAY MORNING 08/27/21 AND "JUST COULDN'T BREATHE AT ALL" AND HAD SOME CHEST PAIN --PAIN WAS SEVERE ON WEDNESDAY HAS CONTINUED TO HAVE THESE SYMPTOMS OFF AND ON--RATES PAIN 10/10 AT WORST, IS 2-3/10 NOW PAIN IS IN CENTER OF CHEST, NO RADIATION OF PAIN WENT TO [facility] TODAY FOR THIS PROBLEM, HAD LAB DONE, AND STATES THEY CALLED HER THIS AFTERNOON AND TOLD HER SHE HAD SOME ABNORMAL LAB FINDINGS AND TOLD HER TO COME HERE ( TROPONIN 0.047 ) NO PALPITATIONS NO SWEATS NO NAUSEA/VOMITING NO DIZZINESS OR SYNCOPE NO SWELLING IN LEGS/FEET OR PAIN IN CALVES PT HAS HAD MA WITH STENT X [address] IN [address] AG IN FEBRUARY OF THIS YEAR PT IS FULLY VACCINATED AGAINST COVID, AND HAD BOOSTER SHOT 1 WEEK AGO. [facility], CELY BOWMAN PATTERN CUTTER: DR. AG Allergies and Home Medications Allergies Coded Allergies: No Known Drug Allergies (Unverified , 10/16/14) Patient Home Medication List Home Medication List Reviewed: Yes Fenofibrate (Fenofibrate) 160 Mg Tablet, 160 MG PO DAILY, (Reported) Entered as Reported by: BRENDA ADAN on 07/06/18 1441 Insulin Glargine,Hum.rec.anlog (Basaglar Kwikpen U-100) 100 Unit/1 Ml Insuln.pen, 34 UNIT SQ BID, (Reported) Entered as Reported by: BRENDA ADAN on 07/06/18 144 Insulin Lispro (Humalog Kwikpen) 200 Unit/1 Ml Insuln.pen, 22 UNIT SQ TIDAC, (Reported) Entered as Reported by: BRENDA ADAN on 07/06/18 144 Lisinopril (Lisinopril) 20 Mg Tablet, 20 MG PO DAILY, (Reported) Entered as Reported by: BRENDA ADAN on 07/06/18 144 Metoprolol Tartrate (Metoprolol Tartrate) 25 Mg Tablet, 25 MG PO BID, (Reported) Entered as Reported by: BRENDA ADAN on 07/06/18 1441 Omeprazole (Omeprazole) 40 Mg Capsule.dr, 40 MG PO DAILY, (Reported) Entered as Reported by: BRENDA ADAN on 07/06/18 144 Simvastatin (Simvastatin) 40 Mg Tablet, 40 MG PO HS, (Reported) Entered as Reported by: BRENDA ADAN on 07/06/18 144 Review of Systems Review of Systems Constitutional: no symptoms reported Respiratory: See HPI, SOA With Exertion Cardiovascular: See HPI, Chest Pain; Denies Edema, Denies Irregular Heart Rate, Denies Lightheadedness, Denies Palpitations, Denies Syncope Gastrointestinal: No Symptoms Reported Genitourinary: No Symptoms Reported Musculoskeletal: no symptoms reported Skin: no symptoms reported Psychiatric/Neurological: No Symptoms Reported Endocrine: No Symptoms Reported Hematologic/Lymphatic: No Symptoms Reported Past Rnmsjzi-Hmlidt-Msbtqv Hx Patient Social History Tobacco Use?: Yes (QUIT SMOKING 1989) Smoking Status: Former Smoker Alcohol Use?: No Immunizations Up To Date Tetanus Booster (TDap): Unknown Seasonal Allergies Seasonal Allergies: No Past Medical History Surgeries: Yes Bowel Surgery, Breast, Cardiac, Coronary Stent, Hysterectomy, Oophorectomy Respiratory: No Cardiac: Yes Coronary Artery Disease, Heart Attack, High Cholesterol, Hypertension Neurological: No Reproductive Disorders: No 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 Genitourinary: No Gastrointestinal: Yes (COLON CANCER) Gastroesophageal Reflux, Hiatal Hernia Musculoskeletal: Yes Arthritis, Chronic Back Pain Endocrine: Yes Diabetes, Insulin dep HEENT: No Cancer: Yes Colon Did You Recieve Any Treatments: Yes What Type of Treatment Did You: Surgical Intervention COLON RESECTION 2008 NO CHEMO OR RADIATION Psychosocial: No Integumentary: No Family Medical History Diabetes mellitus G8 SISTER FH: lung cancer 19 MOTHER SOCIAL HISTORY: -QUIT SMOKING IN 1989 -NO ETOH -NO DRUG USE PAST SURGICAL HISTORY: -CARDIAC CATH WITH STENT X 1 IN 2007 -HYSTERECTOMY/BILATERAL SALPINGO-OOPHORECTOMY -COLON RESECTION FOR CANCER 2008 Physical Exam Vital Signs Vital Signs - First Documented 08/29/21 17:39 Temp 36.5 Pulse 93 Resp 17 B/P (MAP) 181/97 (125) O2 Delivery Room Air Capillary Refill : Height, Weight, BMI Height: 5'7.00" Weight: 209lbs. 0.0oz. 94.009504wo; 32.7 BMI Method: General Appearance: No Apparent Distress, WD/WN, Obese Neck: Normal Inspection Respiratory: Chest Non Tender, Normal Breath Sounds, No Accessory Muscle Use, No Respiratory Distress Cardiovascular: Regular Rate, Rhythm, No Edema, No JVD, No Murmur, Normal Peripheral Pulses Gastrointestinal: Non Tender, Soft Extremity: Normal Capillary Refill, Normal Inspection, Normal Range of Motion, Non Tender, No Calf Tenderness, No Pedal Edema Neurologic/Psychiatric: Alert, Oriented x3, No Motor/Sensory Deficits, Normal Mood/Affect, psychologist developmental II-XII Norm as Tested Skin: Normal Color, Warm/Dry Progress/Results/Core Measures Results/Orders Lab Results Laboratory Tests Test 08/29/21 17:50 Range/Units White Blood Count 10.1 4.3-11.0 10^3/uL Red Blood Count 4.85 3.80-5.11 10^6/uL Hemoglobin 14.0 11.5-16.0 g/dL Hematocrit 44 35-52 % Mean Corpuscular Volume 91 80-99 fL Mean Corpuscular Hemoglobin 29 25-34 pg Mean Corpuscular Hemoglobin Concent 32 32-36 g/dL Red Cell Distribution Width 12.7 10.0-14.5 % Platelet Count 292 130-400 10^3/uL Mean Platelet Volume 9.7 9.0-12.2 fL Immature Granulocyte % (Auto) 1 % Neutrophils (%) (Auto) 72 42-75 % Lymphocytes (%) (Auto) 17 12-44 % Monocytes (%) (Auto) 8 0-12 % Eosinophils (%) (Auto) 1 0-10 % Basophils (%) (Auto) 1 0-10 % Neutrophils # (Auto) 7.3 1.8-7.8 10^3/uL Lymphocytes # (Auto) 1.8 1.0-4.0 10^3/uL Monocytes # (Auto) 0.9 0.0-1.0 10^3/uL Eosinophils # (Auto) 0.1 0.0-0.3 10^3/uL Basophils # (Auto) 0.1 0.0-0.1 10^3/uL Immature Granulocyte # (Auto) 0.1 0.0-0.1 10^3/uL Prothrombin Time 13.0 12.2-14.7 SEC INR Comment 1.0 0.8-1.4 Activated Partial Thromboplast Time 31 24-35 SEC Sodium Level 141 135-145 MMOL/L Potassium Level 3.9 3.6-5.0 MMOL/L Chloride Level 106 98-107 MMOL/L Carbon Dioxide Level 23 21-32 MMOL/L Anion Gap 12 5-14 MMOL/L Blood Urea Nitrogen 16 7-18 MG/DL Creatinine 1.29 0.60-1.30 MG/DL Estimat Glomerular Filtration Rate 40 BUN/Creatinine Ratio 12 Glucose Level 179 H 70-105 MG/DL Calcium Level 9.2 8.5-10.1 MG/DL Corrected Calcium 9.3 8.5-10.1 MG/DL Magnesium Level 1.9 1.6-2.4 MG/DL Total Bilirubin 0.3 0.1-1.0 MG/DL Aspartate Amino Transf (AST/SGOT) 23 5-34 U/L Alanine Aminotransferase (ALT/SGPT) 17 0-55 U/L Alkaline Phosphatase 52 40-136 U/L Total Creatine Kinase 138 29-168 U/L Creatine Kinase MB 3.1 <6.6 NG/ML Myoglobin 77.6 10.0-92.0 NG/ML Troponin I 0.062 H <0.028 NG/ML B-Type Natriuretic Peptide 298.1 H <100.0 PG/ML Total Protein 7.4 6.4-8.2 GM/DL Albumin 3.9 3.2-4.5 GM/DL Amylase Level 54 25-125 U/L Lipase 24 8-78 U/L My Orders Orders - JANE GODOY DO Cbc With Automated Diff (08/29/21 17:40) Magnesium (08/29/21 17:40) Chest 1 View, Ap/Pa Only (08/29/21 17:40) Ekg Tracing (08/29/21 17:40) Comprehensive Metabolic Panel (08/29/21 17:40) Myoglobin Serum (08/29/21 17:40) Protime With Inr (08/29/21 17:40) Partial Thromboplastin Time (08/29/21 17:40) O2 (08/29/21 17:40) Monitor-Rhythm Ecg Trace Only (08/29/21 17:40) Ed Iv/Invasive Line Start (08/29/21 17:40) Creatine Kinase (08/29/21 17:40) Creatine Kinase Mb (08/29/21 17:40) Lipase (08/29/21 17:40) Amylase (08/29/21 17:40) Bnp [place] (08/29/21 17:40) Troponin I Yanet (08/29/21 17:40) Nitroglycerin 0.4 Mg Btl 25's (Nitrostat (08/29/21 17:45) Aspirin Chewable Tablet (Baby Aspirin Ch (08/29/21 17:45) Admission Order(Inpt,Obs,Sdc) (08/29/21 18:40) Sequential Compression Device ONCE (08/29/21 18:40) Initiate Admission Nursing Pro .admission (08/29/21 18:40) Enoxaparin Injection (Lovenox Injection) (08/29/21 18:45) Metoprolol Succinate (Xl) Tab (Toprol Xl (08/29/21 18:45) Amlodipine Tablet (Norvasc Tablet) (08/29/21 18:45) Clopidogrel Tablet (Plavix Tablet) (08/29/21 18:45) Metoprolol Succinate (Xl) Tab (Toprol Xl (08/29/21 21:19) Enoxaparin Injection (Lovenox Injection) (08/29/21 21:19) Amlodipine Tablet (Norvasc Tablet) (08/29/21 21:20) Clopidogrel Tablet (Plavix Tablet) (08/29/21 21:20) Medications Given in ED Current Medications Medications Dose Ordered Sig/Kings Route Start Time Stop Time Status Last Admin Dose Admin Amlodipine Besylate 2.5 mg ONCE ONCE PO 08/29/21 18:45 08/29/21 18:46 DC 08/29/21 21:27 2.5 MG Aspirin 324 mg ONCE ONCE PO 08/29/21 17:45 08/29/21 17:46 DC 08/29/21 17:57 324 MG Clopidogrel Bisulfate 300 mg ONCE ONCE PO 08/29/21 18:45 08/29/21 18:46 DC 08/29/21 21:27 300 MG Enoxaparin Sodium 100 mg ONCE ONCE SC 08/29/21 18:45 08/29/21 18:46 DC 08/29/21 21:28 100 MG Metoprolol Succinate 100 mg ONCE ONCE PO 1217/21 18:45 08/29/21 18:46 DC 08/29/21 21:27 100 MG Nitroglycerin 0.4 mg UD PRN SL 08/29/21 17:45 08/29/21 17:57 0.4 MG Vital Signs/I&O 08/29/21 17:39 Temp 36.5 Pulse 93 Resp 17 B/P (MAP) 181/97 (125) O2 Delivery Room Air Progress Progress Note : Progress Note GIVEN ASPIRIN AND NTG X 1--PAIN COMPLETELY RESOLVED UNEVENTFUL ER STAY Initial ECG Impression Date: Aug 29, 2021 Initial ECG Impression Time: 17:35 Initial ECG Rate: 90 Initial ECG Rhythm: Normal Sinus Initial ECG Impression: Nonspecific Changes Diagnostic Imaging Comments CXR--NO ACUTE PROCESS, PER RADIOLOGIST REPORT AT 1840 Reviewed: Reviewed by Me Departure Communication (Admissions) 1834--SPOKE WITH DR. BRAVO, PATTERN CUTTER, ORDERS NOTED, HE WILL SEE PT IN CONSULT, ADMIT TO MEDICINE 1838--SPOKE WITH DR. GUEVARA, ACCEPTS PT FOR ADMIT. WILL DO ADMIT ORDERS Impression Primary Impression: Chest pain Additional Impressions: Elevated troponin IDDM (insulin dependent diabetes mellitus) HTN (hypertension) Presence of stent in coronary artery in patient with coronary artery disease Disposition: ADMITTED INPATIENT Condition: Improved Admissions Decision to Admit Reason: Admit from ER (General) Decision to Admit/Date: Aug 29, 2021 Time/Decision to Admit Time: 18:35 Departure-Patient Inst. Referrals: JONH CORNELL DO (PCP/Family) Primary Care Physician JANE GODOY DO Aug 29, 2021 17:53
[2021-08-29 17:56] LABS: BASOPHILS # (AUTO) 0.1 10^3/uL (0.0-0.1); BASOPHILS % (AUTO) 1 % (0-10); EOSINOPHILS # (AUTO) 0.1 10^3/uL (0.0-0.3); EOSINOPHILS % (AUTO) 1 % (0-10); HEMATOCRIT 44 % (35-52); LYMPHOCYTES # (AUTO) 1.8 10^3/uL (1.0-4.0); LYMPHOCYTES % (AUTO) 17 % (12-44); MEAN CORPUSCULAR HEMOGLOBIN 29 pg (25-34); MEAN CORPUSCULAR HGB CONC 32 g/dL (32-36); MEAN CORPUSCULAR VOLUME 91 fL (80-99); MEAN PLATELET VOLUME 9.7 fL (9.0-12.2); MONOCYTES # (AUTO) 0.9 10^3/uL (0.0-1.0); MONOCYTES % (AUTO) 8 % (0-12); NEUTROPHILS # (AUTO) 7.3 10^3/uL (1.8-7.8); NEUTROPHILS % (AUTO) 72 % (42-75); PLATELET COUNT 292 10^3/uL (130-400); WHITE BLOOD COUNT 10.1 10^3/uL (4.3-11.0)
[2021-08-29 18:09] LABS: ALBUMIN 3.9 GM/DL (3.2-4.5)
[2021-08-29 18:10] LABS: POTASSIUM 3.9 MMOL/L (3.6-5.0)
[2021-08-29 18:11] LABS: CALCIUM 9.2 MG/DL (8.5-10.1)
[2021-08-29 18:12] LABS: TOTAL PROTEIN 7.4 GM/DL (6.4-8.2)
[2021-08-29 18:14] LABS: BILIRUBIN,TOTAL 0.3 MG/DL (0.1-1.0)
[2021-08-29 18:16] LABS: CREATININE SERUM 1.29 MG/DL (0.60-1.30)
--- NOTE | 2021-08-29 18:17 | Diagnostic Imaging Report ---
EXAMINATION: Chest 1 view HISTORY: Chest pain. COMPARISON: 10/17/2014. FINDINGS: The lung volumes are normal. No focal consolidation is seen. No large pleural effusion or pneumothorax is seen. The cardiomediastinal silhouette is normal in size and contour. There is calcified aortic atherosclerotic plaque. No acute osseous abnormality is seen. IMPRESSION: 1. No acute pleuroparenchymal process. Dictated by: Dictated on workstation # [id number]
[2021-08-29 18:18] LABS: MAGNESIUM 1.9 MG/DL (1.6-2.4)
[2021-08-29 18:27] LABS: CREATINE KINASE MB 3.1 NG/ML (<6.6)
[2021-08-29] MEDS ORDERED: meTOprolol SUCCINATE 100 MG (TOPROL XL) TAB PO ONE (18:45)
[2021-08-29] MEDS ORDERED: ENOXAPARIN 100 MG/1 ML (LOVENOX) SYR SC ONE (18:45)
[2021-08-29] MEDS ORDERED: CLOPIDOGREL 300 MG (PLAVIX) TABLET PO ONE ×2 (18:45→21:20)
[2021-08-29] MEDS ORDERED: amLODIPine 2.5MG (NORVASC) TAB PO ONE (18:45)
--- NOTE | 2021-08-29 19:10 | Consultation-Cardiology ---
HPI-Cardiology Cardiology Consultation: Date of Consultation 08/29/21 Time Seen by a Provider: 18:50 Date of Admission Attending Physician Admitting Physician Donna Cadena DO Consulting Physician LALI BRAVO MD, MA, FACP, FACC, FSCAI, CCDS HPI: Chief Complaint: Chest discomfort 75 yo woman with persistent chest pain since 08/27/21, worse with exertion, midsternal or L parasternal, radiating to L shoulder, mild to mod, relieved in the ER with s/l NTG. Notes exertional shortness of breath. Denies palp or synco pe or swelling. Review of Systems-Cardiology Review of Systems Constitutional: malaise, tiredness; No weight loss, No weight gain Eyes: No vision change Ears/Nose/Throat: No ear discharge, No nasal drainage, No recent hearing loss Respiratory: As described under HPI Cardiovascular: As described under HPI Gastrointestinal: No constipation, No diarrhea, No nausea, No vomiting Genitourinary: No dysuria, No hematuria, No urine frequency changes Musculoskeletal: No back pain, No joint pain Skin: No rash, No ulcerations Psychiatric/Neurological: No seizure, No focal weakness, No syncope Hematologic: No bleeding abnormalities EVU-Tmamcg-Ajsnuv Hx Patient Social History Smoking Status: Former Smoker Have you traveled recently?: No Alcohol Use?: No Immunizations Up To Date Tetanus Booster (TDap): Unknown Date of Influenza Vaccine: Jul 05, 2018 Past Medical History PMH As described under Assessment. Family Medical History Family Medical History: Does not report fam h/o early CAD or SCD Family History: Diabetes mellitus G8 SISTER FH: lung cancer 19 MOTHER Allergies and Home Medications Allergies Coded Allergies: No Known Drug Allergies (Unverified , 10/16/14) Patient Home Medication List Home Medication List Reviewed: Yes Fenofibrate (Fenofibrate) 160 Mg Tablet, 160 MG PO DAILY, (Reported) Entered as Reported by: BRENDA ADAN on 07/06/18 1441 Insulin Glargine,Hum.rec.anlog (Basaglar Kwikpen U-100) 100 Unit/1 Ml I nsuln.pen, 34 UNIT SQ BID, (Reported) Entered as Reported by: BRENDA ADAN on 07/06/18 1441 Insulin Lispro (Humalog Kwikpen) 200 Unit/1 Ml Insuln.pen, 22 UNIT SQ TIDAC, (Reported) Entered as Reported by: BRENDA ADAN on 07/06/18 144 Lisinopril (Lisinopril) 20 Mg Tablet, 20 MG PO DAILY, (Reported) Entered as Reported by: BRENDA ADAN on 07/06/18 144 Metoprolol Tartrate (Metoprolol Tartrate) 25 Mg Tablet, 25 MG PO BID, (Reported) Entered as Reported by: BRENDA ADAN on 07/06/18 144 Omeprazole (Omeprazole) 40 Mg Capsule.dr, 40 MG PO DAILY, (Reported) Entered as Reported by: BRENDA ADAN on 07/06/18 144 Simvastatin (Simvastatin) 40 Mg Tablet, 40 MG PO HS, (Reported) Entered as Reported by: BRENDA ADAN on 07/06/18 144 Physical Exam-Cardiology Physical Exam Vital Signs/I&O 08/29/21 17:39 Temp 36.5 Pulse 93 Resp 17 B/P (MAP) 181/97 (125) O2 Delivery Room Air Capillary Refill : Less Than 3 Seconds Constitutional: AAO x 3, well-developed, well-nourished HEENT: hearing is well preserved Neck: carotid pulses are 2 + bilaterally, with good upstrokes Respiratory: No accessory muscle use; other (good bilateral air entry) Cardiovascular: regular rate-rhythm, S1 and S2, systolic murmur (soft LOVE at card basee) Gastrointestinal: No tender; soft; No guarding, No rebound; audible bowel sounds Extremities: No clubbing, No cyanosis, No significant edema Neurologic/Psychiatric: oriented x 3, other (moves all limbs equally) Skin: No rash on exposed areas, No ulcerations on exposed areas Data Review Labs Laboratory Tests 08/29/21 17:50: White Blood Count 10.1, Red Blood Count 4.85, Hemoglobin 14.0, Hematocrit 44, Mean Corpuscular Volume 91, Mean Corpuscular Hemoglobin 29, Mean Corpuscular Hemoglobin Concent 32, Red Cell Distribution Width 12.7, Platelet Count 292, Mean Platelet Volume 9.7, Immature Granulocyte % (Auto) 1, Neutrophils (%) (Auto) 72, Lymphocytes (%) (Auto) 17, Monocytes (%) (Auto) 8, Eosinophils (%) (Auto) 1, Basophils (%) (Auto) 1, Neutrophils # (Auto) 7.3, Lymphocytes # (Auto) 1.8, Monocytes # (Auto) 0.9, Eosinophils # (Auto) 0.1, Basophils # (Auto) 0.1, Immature Granulocyte # (Auto) 0.1, Prothrombin Time 13.0, INR Comment 1.0, Activated Partial Thromboplast Time 31, Sodium Level 141, Potassium Level 3.9, Chloride Level 106, Carbon Dioxide Level 23, Anion Gap 12, Blood Urea Nitrogen 16, Creatinine 1.29, Estimat Glomerular Filtration Rate 40, BUN/Creatinine Ratio 12, Glucose Level 179H, Calcium Level 9.2, Corrected Calcium 9.3, Magnesium Level 1.9, Total Bilirubin 0.3, Aspartate Amino Transf (AST/SGOT) 23, Alanine Aminotransferase (ALT/SGPT) 17, Alkaline Phosphatase 52, Total Creatine Kinase 138, Creatine Kinase MB 3.1, Myoglobin 77.6, Troponin I 0.062H, B-Type Natriuretic Peptide 298.1H, Total Protein 7.4, Albumin 3.9, Amylase Level 54, Li pase 24 Laboratory Tests 08/29/21 17:50 A/P-Cardiology Assessment/Admission Diagnosis CP: consider unstable angina vs ac NSTEMI CAD, h/o cor stent in [place] in 2007 - last card [place] [address] Dowell at this hosp: patent RCA stent, no significant obstructive CAD Hypertension DM II, insulin requiring Elevated BMI of approx 32 Discussion and Recomendations * Treat with DAPT and enoxaparin * Treat with beta-kimberli and amlodipine * Tele * Further recs based on hosp course Clinical Quality Measures AMI/AHF: ASA po Prior to arrival: LALI Navarro MD FACP [facility] CCDS Aug 29, 2021 19:10
[2021-08-29] MEDS ORDERED: ENOXAPARIN 100 MG/1 ML (LOVENOX) SYR ONE (21:19)
[2021-08-29] MEDS ORDERED: meTOproloL SUCCINATE 50 MG (TOPROL XL) TAB PO ONE (21:19)
[2021-08-29] MEDS ORDERED: amLODIPine 5 MG (NORVASC) TAB ONE (21:20)
[2021-08-29] MEDS ORDERED: morphine INJ 4 MG/ML 1 ML (VIAL/SYRINGE) IV PRN (21:30)
[2021-08-29] MEDS ORDERED: ONDANSETRON 4 MG/2 ML (SDV) Z0FRAN IVP PRN (21:30)
[2021-08-29] MEDS ORDERED: PATIENT MAY USE OWN MEDS, ALL PO SCH (21:30)
[2021-08-30] VITALS (7 sets, daily range): BP systolic 119–158; BP diastolic 46–72
[2021-08-30] MEDS: inSUlin ASPART (NovoLOG) 1 UNIT/0.01 ML (CHARGE PER UNIT) SC SCH ×4 (05:24→20:23)
[2021-08-30 06:01] LABS: TRIGLYCERIDES 259 MG/DL (<150); VLDL CHOLESTEROL 52 MG/DL (5-40)
[2021-08-30 06:06] LABS: CHOLESTEROL 162 MG/DL (< 200); HDL CHOLESTEROL 28 MG/DL (40-60)
[2021-08-30] MEDS ORDERED: ENOXAPARIN 100 MG/1 ML (LOVENOX) SYR SC SCH (09:00)
[2021-08-30] MEDS: ASPIRIN 81 MG CHEW (CHILDREN'S ASA) PO SCH (09:17)
[2021-08-30] MEDS: amLODIPine 2.5MG (NORVASC) TAB PO SCH (09:17)
[2021-08-30] MEDS: meTOprolol SUCCINATE 100 MG (TOPROL XL) TAB PO SCH (09:17)
[2021-08-30] MEDS: CLOPIDOGREL 75 MG (PLAVIX) TABLET PO SCH (09:17)
--- NOTE | 2021-08-30 11:13 | History & Physical ---
HPI History of Present Illness: 75 yo female says her primary sent her to the hospital after she told her she had been having difficulty catching her breath for quite some time, which became worse recently and had a severe acute episode on Wed for about 10 minutes. She has had nasal congestion and scratchy throat with occasional dry cough for several days. She has a history of CAD with stenting in the past. This doesn't necessarily feel like chest pain to her, but rather like she can't get a breath. She was found to have elevated troponin and was admitted for further work-up, cardiac cath pending later today. Source: patient Exam Limitations: no limitations Date seen by provider: Aug 30, 2021 Time Seen by Provider: 11:10 Attending Physician Johnathon Machado MD [facility] Center/[facility] [place], Consult Date of Admission Aug 29, 2021 at 21:28 Home Medications Home Medications Reviewed patient Home Medication Reconciliation performed by pharmacy medication reconciliations rd lab technician and/or nursing. Patients Allergies have been reviewed. Allergies Coded Allergies: No Known Drug Allergies (Unverified , 10/16/14) [id number]-Mnejrn Hx Patient Social History Smoking Status: Former Smoker Recent Hopitalizations: No Alcohol Use?: No Have you traveled recently?: No Immunizations Up To Date Tetanus Booster (TDap): Unknown Influenza Vaccine Up-to-Date: No; Not Current First/Initial COVID19 Vaccinat: UNKNOWN DATE Second COVID19 Vaccination Xu: UNKNOWN DATE Third COVID19 Vaccination Date: 08/2021 COVID19 Vaccine Child Care Associate: MODERNA Past Medical History PMHx: CAD HTN DMII HLD AAA CKD3 Colon cancer SurgHx: Coronary artery stenting Hysterectomy Partial colectomy Family Medical History Other Significan Family Hx: SOCIAL HISTORY: -QUIT SMOKING IN 1989 -NO ETOH -NO DRUG USE PAST SURGICAL HISTORY: -CARDIAC CATH WITH STENT X 1 IN 2007 -HYSTERECTOMY/BILATERAL SALPINGO-OOPHORECTOMY -COLON RESECTION FOR CANCER 2009 Family History: Diabetes mellitus G8 SISTER FH: lung cancer 19 MOTHER Review of Systems ([facility]) Constitutional: No fever EENTM: nose congestion Respiratory: cough, dyspnea on exertion Cardiovascular: No chest pain Gastrointestinal: No abdominal pain, No constipation, No diarrhea, No nausea, No vomiting Genitourinary: No dysuria Musculoskeletal: No joint pain, No muscle pain Skin: No rash Psychiatric/Neurological: Denies Anxiety, Denies Depressed Reviewed Test Results Reviewed Test Results Lab Laboratory Tests Test 08/29/21 17:50 08/29/21 22:00 08/30/21 00:50 08/30/21 01:15 Range/Units White Blood Count 10.1 4.3-11.0 10^3/uL Red Blood Count 4.85 3.80-5.11 10^6/uL Hemoglobin 14.0 11.5-16.0 g/dL Hematocrit 44 35-52 % Mean Corpuscular Volume 91 80-99 fL Mean Corpuscular Hemoglobin 29 25-34 pg Mean Corpuscular Hemoglobin Concent 32 32-36 g/dL Red Cell Distribution Width 12.7 10.0-14.5 % Platelet Count 292 130-400 10^3/uL Mean Platelet Volume 9.7 9.0-12.2 fL Immature Granulocyte % (Auto) 1 % Neutrophils (%) (Auto) 72 42-75 % Lymphocytes (%) (Auto) 17 12-44 % Monocytes (%) (Auto) 8 0-12 % Eosinophils (%) (Auto) 1 0-10 % Basophils (%) (Auto) 1 0-10 % Neutrophils # (Auto) 7.3 1.8-7.8 10^3/uL Lymphocytes # (Auto) 1.8 1.0-4.0 10^3/uL Monocytes # (Auto) 0.9 0.0-1.0 10^3/uL Eosinophils # (Auto) 0.1 0.0-0.3 10^3/uL Basophils # (Auto) 0.1 0.0-0.1 10^3/uL Immature Granulocyte # (Auto) 0.1 0.0-0.1 10^3/uL Prothrombin Time 13.0 12.2-14.7 SEC INR Comment 1.0 0.8-1.4 Activated Partial Thromboplast Time 31 24-35 SEC Sodium Level 141 135-145 MMOL/L Potassium Level 3.9 3.6-5.0 MMOL/L Chloride Level 106 98-107 MMOL/L Carbon Dioxide Level 23 21-32 MMOL/L Anion Gap 12 5-14 MMOL/L Blood Urea Nitrogen 16 7-18 MG/DL Creatinine 1.29 0.60-1.30 MG/DL Estimat Glomerular Filtration Rate 40 BUN/Creatinine Ratio 12 Glucose Level 179 H 70-105 MG/DL Calcium Level 9.2 8.5-10.1 MG/DL Corrected Calcium 9.3 8.5-10.1 MG/DL Magnesium Level 1.9 1.6-2.4 MG/DL Total Bilirubin 0.3 0.1-1.0 MG/DL Aspartate Amino Transf (AST/SGOT) 23 5-34 U/L Alanine Aminotransferase (ALT/SGPT) 17 0-55 U/L Alkaline Phosphatase 52 40-136 U/L Total Creatine Kinase 138 29-168 U/L Creatine Kinase MB 3.1 <6.6 NG/ML Myoglobin 77.6 10.0-92.0 NG/ML Troponin I 0.062 H 0.056 H <0.028 NG/ML B-Type Natriuretic Peptide 298.1 H <100.0 PG/ML Total Protein 7.4 6.4-8.2 GM/DL Albumin 3.9 3.2-4.5 GM/DL Amylase Level 54 25-125 U/L Lipase 24 8-78 U/L Glucometer 113 H 195 H 70-110 MG/DL Test 08/30/21 05:22 08/30/21 05:28 Range/Units Glucometer 175 H 70-110 MG/DL Triglycerides Level 259 H <150 MG/DL Cholesterol Level 162 < 200 MG/DL LDL Cholesterol Direct 93 1-129 MG/DL VLDL Cholesterol 52 H 5-40 MG/DL HDL Cholesterol 28 L 40-60 MG/DL Radiology CXR 08/29/21 no acute abnormalities Physical Exam-([facility]) Physical Exam Vital Signs VS - Last 72 Hours, by Label 08/29/21 08/29/21 08/29/21 08/30/21 17:39 21:50 22:12 00:00 Temp 36.5 36.8 Pulse 93 71 74 Resp 17 20 B/P (MAP) 181/97 (125) 119/46 (70) Pulse Ox 92 O2 Delivery Room Air Room Air Room Air 08/30/21 08/30/21 08/30/21 08/30/21 00:00 01:00 04:00 04:00 Temp 37.6 Pulse 72 89 Resp 16 B/P (MAP) 158/72 (100) Pulse Ox 92 O2 Delivery Room Air Room Air Room Air 08/30/21 08/30/21 08/30/21 08/30/21 07:00 08:00 08:00 12:00 Temp 37.0 Pulse 84 86 69 Resp 20 19 B/P (MAP) 144/63 (90) 126/53 (77) Pulse Ox 92 96 O2 Delivery Room Air Room Air Nasal Cannula O2 Flow Rate 2.00 08/30/21 12:00 O2 Delivery Room Air Capillary Refill : Less Than 3 Seconds General Appearance: WD/WN, no apparent distress Respiratory: lungs clear, normal breath sounds Cardiovascular: regular rate, rhythm, no murmur Peripheral Pulses: 2+ Dorsalis Pedis (R), 2+ Left Dors-Pedis (L) Gastrointestinal: normal bowel sounds, non tender, soft Extremities: no pedal edema Neurologic/Psychiatric: alert, normal mood/affect Skin: normal color, warm/dry Assessment/Plan Assessment/Plan Admission Status: Observation (1) Elevated troponin Status: Acute Assessment & Plan: Cardiology consulted, started on treatment dose enoxaparin and DAPT, plan for cath today. (2) Hypertension Status: Chronic Assessment & Plan: Resume home meds, metoprolol and amlodipine per Cardiology recs. Qualifiers: Qualified Codes: I10 - Essential (primary) hypertension (3) Hyperlipidemia Status: Chronic Assessment & Plan: High intensity statin (4) Chronic kidney disease Status: Chronic Assessment & Plan: Stable Qualifiers: Qualified Codes: N18.31 - Chronic kidney disease, stage 3a (5) Coronary artery disease Status: Chronic Assessment & Plan: Cardiology consulted, appreciate recommendations Qualifiers: Qualified Codes: I25.110 - Atherosclerotic heart disease of [place] coronary artery with unstable angina pectoris (6) IDDM (insulin dependent diabetes mellitus) Status: Acute Assessment & Plan: Sliding scale insulin. (7) History of colon cancer (8) DVT prophylaxis Status: Acute Assessment & Plan: Treatment dose enoxaparin until cath. Clinical Quality Measures AMI/AHF: ASA po Prior to arrival: JOHNATHON Honeycutt MD Aug 30, 2021 11:13
[2021-08-30] MEDS ORDERED: fentaNYL INJ 100 MCG/2 ML AMP ONE (11:31)
[2021-08-30] MEDS ORDERED: MIDAZOLAM 5 MG/5 ML (VERSED) VIAL ONE (11:31)
[2021-08-30] MEDS ORDERED: LIDOCAINE 1% INJ 20 ML 20 ML VIAL ONE (11:32)
[2021-08-30] MEDS ORDERED: HEParin (CATH LAB) 2,000 ML IV ONE (11:32)
[2021-08-30] MEDS ORDERED: NS IV 1000 ML 1,000 ML ONE (11:32)
[2021-08-30] MEDS ORDERED: HEParin 1000 UNIT/ML (10ML VIAL) FOR BOLUS ONE (12:05)
[2021-08-30] MEDS ORDERED: NITRO DRIP 25000 MCG/D5W 250 ML IV ONE (12:05)
[2021-08-30] MEDS ORDERED: EPTIFIBATIDE BOLUS 20 ML IV ONE (12:11)
[2021-08-30] MEDS ORDERED: CLOPIDOGREL 300 MG (PLAVIX) TABLET PO ONE (13:28)
[2021-08-30] MEDS ORDERED: ASPIRIN 81 MG CHEW (CHILDREN'S ASA) ONE (13:29)
--- NOTE | 2021-08-30 13:53 | Progress Note - Cardiology ---
Cardiology SOAP Progress Note Subjective: Continuing chest discomfort with activity led to the intervention today that is described below No palp or syncope or shortness of breath No n/v/d No swelling Some gen malaise Objective: I&O/Vital Signs 08/30/21 08/30/21 08/30/21 08/30/21 04:00 04:00 07:00 08:00 Temp 37.6 37.0 Pulse 89 84 86 Resp 16 20 B/P (MAP) 158/72 (100) 144/63 (90) Pulse Ox 92 92 O2 Delivery Room Air Room Air Room Air 08/30/21 08/30/21 08:00 12:00 O2 Delivery Room Air Room Air Weight (Pounds): 209 Weight (Ounces): 0.0 Weight (Calculated Kilograms): 94.303870 Constitutional: AAO x 3, well-developed, well-nourished Respiratory: No accessory muscle use; other (good bilateral air entry) Cardiovascular: regular rate-rhythm, S1 and S2, systolic murmur (soft LOVE at card basee) Gastrointestional: No tender; soft; No guarding, No rebound; audible bowel sounds Extremities: No clubbing, No cyanosis, No significant edema Neurologic/Psychiatric: oriented x 3, other (moves all limbs equally) Skin: No rash on exposed areas, No ulcerations on exposed areas Results/Procedures: Labs Laboratory Tests 08/29/21 17:50: White Blood Count 10.1, Red Blood Count 4.85, Hemoglobin 14.0, Hematocrit 44, Mean Corpuscular Volume 91, Mean Corpuscular Hemoglobin 29, Mean Corpuscular Hemoglobin Concent 32, Red Cell Distribution Width 12.7, Platelet Count 292, Mean Platelet Volume 9.7, Immature Granulocyte % (Auto) 1, Neutrophils (%) (Auto) 72, Lymphocytes (%) (Auto) 17, Monocytes (%) (Auto) 8, Eosinophils (%) (Auto) 1, Basophils (%) (Auto) 1, Neutrophils # (Auto) 7.3, Lymphocytes # (Auto) 1.8, Monocytes # (Auto) 0.9, Eosinophils # (Auto) 0.1, Basophils # (Auto) 0.1, Immature Granulocyte # (Auto) 0.1, Prothrombin Time 13.0, INR Comment 1.0, Activated Partial Thromboplast Time 31, Sodium Level 141, Potassium Level 3.9, Chloride Level 106, Carbon Dioxide Level 23, Anion Gap 12, Blood Urea Nitrogen 16, Creatinine 1.29, Estimat Glomerular Filtration Rate 40, BUN/Creatinine Ratio 12, Glucose Level 179H, Calcium Level 9.2, Corrected Calcium 9.3, Magnesium Level 1.9, Total Bilirubin 0.3, Aspartate Amino Transf (AST/SGOT) 23, Alanine Aminotransferase (ALT/SGPT) 17, Alkaline Phosphatase 52, Total Creatine Kinase 138, Creatine Kinase MB 3.1, Myoglobin 77.6, Troponin I 0.062H, B-Type Natriuretic Peptide 298.1H, Total Protein 7.4, Albumin 3.9, Amylase Level 54, Lipase 24 08/29/21 22:00: Glucometer 113H 08/30/21 00:50: Glucometer 195H 08/30/21 01:15: Troponin I 0.056H 08/30/21 05:22: Glucometer 175H 08/30/21 05:28: Triglycerides Level 259H, Cholesterol Level 162, LDL Cholesterol Direct 93, VLDL Cholesterol 52H, HDL Cholesterol 28L Laboratory Tests 08/29/21 17:50 A/P: Assessment: Ac NSTEMI treated with stenting or mid and distal RCA on 08/30/21 (see cath findings below) CAD - h/o cor stent in [place] in 2007 - last card cath 08/30/21: LMCA [place], LAD diffuse mild plaques, LCX OM1 with 70% prox stenosis (small caliber vessel), RCA subtotal in the mid vessel (past a patent stent) that was successfully intervened on and there no significant residual after deployment of overlapping Skypoint 3x33 and 3x18 stents, LVEDP 4, LVEF75% Hypertension DM II, insulin requiring Elevated BMI of approx 32 Plan: * Treat with DAPT * Treat with beta-kimberli and amlodipine * Add statin * Change Lovenox to DVT-prophylaxis dose * Monitor labs Clinical Quality Measures AMI/AHF: ASA po Prior to arrival: LALI Navarro MD [facility] Aug 30, 2021 13:53
[2021-08-30] MEDS ORDERED: PATIENT MAY USE OWN MEDS, ALL PO SCH (14:00)
--- NOTE | 2021-08-30 15:48 | CARDIAC CATHETERIZATION ---
DATE OF SERVICE: 08/30/2021 CARDIAC CATHETERIZATION AND CORONARY INTERVENTION REPORT The patient is a 75-year-old lady, who was admitted with acute non-ST elevation myocardial infarction. She has a prior history of right coronary artery stenting. Informed consent was obtained for cardiac catheterization and possible ad hoc coronary intervention. DESCRIPTION OF PROCEDURE: She was brought to the cardiac catheterization laboratory in a fasting state. Right groin was prepared and draped in the usual sterile fashion. Lidocaine 1% was used for local anesthesia. Modified Seldinger technique was used to advance a 6-Wallisian sheath in the right femoral artery. A 6-Wallisian JL4 catheter for left coronary angiography. A 6-Wallisian JR4 catheter was used for right coronary angiography. Subsequently, percutaneous intervention was carried out in the right coronary artery and is described below. Percutaneous intervention of the right coronary artery. We used a 6-Wallisian JR4 guide catheter to engage the right coronary artery. The artery was exhibiting 99% to 100% stenosis in the mid portion, past the distal edge of a previously placed stent and just past a small caliber right ventricular branch. We tried to advance a ChoICE floppy wire across the lesion. We were unsuccessful. We removed the wire and we were able to advance Whisper medium support wire across the lesion with moderate difficulty. We carried out balloon angioplasty with 1.5 x 15 mm balloon. This allowed good antegrade flow and we were able to see the distal artery. We were then able to advance the wire into the terminal posterolateral branch of the right coronary. We carried out balloon angioplasty in the mid and distal right coronary artery with multiple balloons. Final balloon angioplasty was carried out with 2.5 x 20 mm balloon. We advanced a Skypoint 3.0 x 18 mm stent to the distal lesion. This was carefully positioned and deployed at 12 atmospheres. We then had to carry out more angioplasty of the mid vessel lesion because of inability to cross another stent to the mid vessel because we stented the distal lesion first. We carried out further balloon angioplasty of the mid right coronary artery with 3.0 x 20 mm balloons and were then able to advance a Skypoint 3.0 x 33 mm stent, which slightly overlaps the newly placed distal stent and the old proximal right coronary artery stent. The stent was deployed at 16 atmospheres. Subsequently, using the stent balloon, we carried out further balloon angioplasty within the previously stented segment of the right coronary artery. Flow throughout the vessel was normal. A small caliber right ventricular branch is jailed by the stent and exhibits sluggish flow. This is a small caliber vessel and is not amenable to intervention. The patient tolerated the procedure well. Following completion of the interventional procedure, we carried out left heart catheterization with a 6-Wallisian pigtail catheter and left ventricular angiography was performed. The catheter was then pulled back and removed. Angiography of the right femoral artery was carried out through the sheath and Mynx was used to achieve hemostasis. She tolerated the procedure well. HEMODYNAMICS: Left ventricular end-diastolic pressure following coronary angiography was 4 mmHg. There was no significant pressure gradient on pullback across the aortic valve. Ascending aortic pressure was 123/53 with a mean of 80 mmHg. CORONARY ANGIOGRAPHY: Left main coronary artery is free of significant disease. Left anterior descending artery has diffuse mild plaques. Left circumflex artery has 70% stenosis in a small caliber first obtuse marginal branch, left circumflex artery is nondominant. Faint collaterals were seen from the left coronary artery to the distal right coronary artery. The right coronary artery had a patent stent in its proximal portion. This is known to have been placed in 2007, but the details of the stents are not known. This is a long stented segment. Distal to this stented segment was a subtotal occlusion. Successful percutaneous intervention was carried out to the mid and distal right coronary artery, from distal to proximal, Skypoint 3.0 x 18 mm and Skypoint 3.0 x 33 mm stents were placed. These stents are overlapping. The proximal of these two stents also overlaps the old stent in the proximal right coronary artery. Balloon angioplasty was also carried out to the old stented segment of the proximal right coronary artery. LEFT VENTRICULAR ANGIOGRAPHY: Left ventricular angiography was carried out in the right anterior oblique projection. Left ventricular systolic function is hyperdynamic. Left ventricular ejection fraction of 75%. CONCLUSIONS: 1. Coronary artery disease primarily consisting of a subtotal occlusion in the distal right coronary that was successfully treated with overlapping with Skypoint 3.0 x 33 and Skypoint 3.0 x 18 mm stent. The proximal of these two stents also overlapped the distal part of the old stent within the proximal right coronary artery. The left circumflex artery has 70% stenosis and a small caliber obtuse marginal and the left anterior descending artery has diffuse mild plaque. 2. Low normal left ventricular end-diastolic pressure. 3. Hyperdynamic left ventricular systolic function with ejection fraction 75%. Job ID: [id number] DocumentID: [id number] Dictated Date: 08/30/2021 14:06:22 Nut Picker Date: 08/30/2021 15:48:07 Dictated By: LALI BRAVO MD, MA, FACP, FACC,
[2021-08-30] MEDS: NS IV 1000 ML 1,000 ML IV SCH (17:55)
[2021-08-31] VITALS: BP 170/71
[2021-08-31] MEDS ORDERED: ACETAMINOPHEN 500 MG TAB (TYLENOL) PO PRN (01:15)
[2021-08-31] MEDS ORDERED: ACETAMINOPHEN 500 MG TAB (TYLENOL) ONE (01:15)
[2021-08-31 04:00] VITALS: BP 145/61
[2021-08-31 06:09] LABS: BASOPHILS % (AUTO) 0 % (0-10); EOSINOPHILS % (AUTO) 0 % (0-10); HEMATOCRIT 38 % (35-52); HEMOGLOBIN 12.1 g/dL (11.5-16.0); LYMPHOCYTES # (AUTO) 1.7 10^3/uL (1.0-4.0); LYMPHOCYTES % (AUTO) 17 % (12-44); MEAN CORPUSCULAR HEMOGLOBIN 29 pg (25-34); MEAN CORPUSCULAR HGB CONC 32 g/dL (32-36); MEAN CORPUSCULAR VOLUME 91 fL (80-99); MEAN PLATELET VOLUME 10.1 fL (9.0-12.2); MONOCYTES % (AUTO) 11 % (0-12); NEUTROPHILS # (AUTO) 6.9 10^3/uL (1.8-7.8); NEUTROPHILS % (AUTO) 71 % (42-75); PLATELET COUNT 243 10^3/uL (130-400); WHITE BLOOD COUNT 9.7 10^3/uL (4.3-11.0)
[2021-08-31 06:31] LABS: ALBUMIN 3.4 GM/DL (3.2-4.5); POTASSIUM 3.9 MMOL/L (3.6-5.0)
[2021-08-31 06:32] LABS: CALCIUM 8.6 MG/DL (8.5-10.1)
[2021-08-31 06:33] LABS: TOTAL PROTEIN 6.4 GM/DL (6.4-8.2)
[2021-08-31 06:35] LABS: BILIRUBIN,TOTAL 0.4 MG/DL (0.1-1.0)
[2021-08-31 06:37] LABS: CREATININE SERUM 1.22 MG/DL (0.60-1.30)
[2021-08-31] MEDS: inSUlin ASPART (NovoLOG) 1 UNIT/0.01 ML (CHARGE PER UNIT) SC SCH ×2 (07:41→11:50)
[2021-08-31] MEDS: NS IV 1000 ML 1,000 ML IV SCH ×2 (07:42→09:29)
[2021-08-31] MEDS ORDERED: ATOR40TA PO (07:49)
[2021-08-31] MEDS ORDERED: MTP100TCR PO (07:49)
[2021-08-31] MEDS: meTOprolol SUCCINATE 100 MG (TOPROL XL) TAB PO SCH (08:36)
[2021-08-31] MEDS: CLOPIDOGREL 75 MG (PLAVIX) TABLET PO SCH (08:36)
[2021-08-31] MEDS: ASPIRIN 81 MG CHEW (CHILDREN'S ASA) PO SCH (08:36)
[2021-08-31] MEDS: amLODIPine 2.5MG (NORVASC) TAB PO SCH (08:36)
[2021-08-31] MEDS ORDERED: ENOXAPARIN 40 MG/0.4 ML (LOVENOX) SYR SC SCH (10:00)
[2021-08-31] MEDS ORDERED: ASPI81TA64 PO (10:54)
[2021-08-31] MEDS ORDERED: CLOP75TA28 PO (10:54)
--- NOTE | 2021-08-31 10:59 | Progress Note - Cardiology ---
Cardiology SOAP Progress Note Subjective: No cp or palp or syncope or shortness of breath No leg or groin discomfort or discoloration No n/v/d Objective: I&O/Vital Signs 08/31/21 08/31/21 08/31/21 08/31/21 00:00 01:00 04:00 07:00 Temp 37.6 36.5 Pulse 92 100 72 78 Resp 14 23 B/P (MAP) 170/71 (104) 145/61 (89) Pulse Ox 94 95 O2 Delivery Room Air Room Air 08/31/21 09:18 O2 Delivery Room Air 08/31/21 00:00 Intake Total 300 ml Balance 300 ml Weight (Pounds): 209 Weight (Ounces): 0.0 Weight (Calculated Kilograms): 94.400963 Condition: DP/PT pulses palpable Bruising: mild bruising Constitutional: AAO x 3, well-developed, well-nourished Respiratory: No accessory muscle use; other (good bilateral air entry) Cardiovascular: regular rate-rhythm, S1 and S2, systolic murmur (soft LOVE at card basee) Gastrointestional: No tender; soft; No guarding, No rebound; audible bowel s ounds Extremities: No clubbing, No cyanosis, No significant edema Neurologic/Psychiatric: oriented x 3, other (moves all limbs equally) Skin: No rash on exposed areas, No ulcerations on exposed areas Results/Procedures: Labs Laboratory Tests 08/30/21 17:41: Glucometer 160H 08/31/21 01:01: Glucometer 173H 08/31/21 05:50: White Blood Count 9.7, Red Blood Count 4.13, Hemoglobin 12.1, Hematocrit 38, M suhas Corpuscular Volume 91, Mean Corpuscular Hemoglobin 29, Mean Corpuscular Hemoglobin Concent 32, Red Cell Distribution Width 12.6, Platelet Count 243, Mean Platelet Volume 10.1, Immature Granulocyte % (Auto) 1, Neutrophils (%) (Auto) 71, Lymphocytes (%) (Auto) 17, Monocytes (%) (Auto) 11, Eosinophils (%) (Auto) 0, Basophils (%) (Auto) 0, Neutrophils # (Auto) 6.9, Lymphocytes # (Auto) 1.7, Monocytes # (Auto) 1.0, Eosinophils # (Auto) 0.0, Basophils # (Auto) 0.0, Immature Granulocyte # (Auto) 0.1, Sodium Level 138, Potassium Level 3.9, Chloride Level 106, Carbon Dioxide Level 17L, Anion Gap 15H, Blood Urea Nitrogen 17, Creatinine 1.22, Estimat Glomerular Filtration Rate 43, BUN/Creatinine Ratio 14, Glucose Level 169H, Calcium Level 8.6, Corrected Calcium 9.1, Total Bilirubin 0.4, Aspartate Amino Transf (AST/SGOT) 22, Alanine Aminotransferase (ALT/SGPT) 12, Alkaline Phosphatase 45, Total Protein 6.4, Albumin 3.4 Laboratory Tests 08/29/21 17:50 08/31/21 05:50 A/P: Assessment: Ac NSTEMI treated with stenting or mid and distal RCA on 08/30/21 (see cath findings below) CAD - h/o cor stent in [place] in 2007 - last card cath 08/30/21: LMCA [place], LAD diffuse mild plaques, LCX OM1 with 70% prox stenosis (small caliber vessel), RCA subtotal in the mid vessel (past a patent stent) that was successfully intervened on and there no significant residual after deployment of overlapping Skypoint 3x33 and 3x18 stents, LVEDP 4, LVEF75% Hypertension DM II, insulin requiring CKD-3, stable post cath on 08/30/21 Elevated BMI of approx 32 Plan: * Treat with DAPT * Treat with beta-kimberli and amlodipine and statin * Advised compliance with meds. Outpt f/u advised Clinical Quality Measures AMI/AHF: ASA po Prior to arrival: LALI Navarro MD FACP [facility] Aug 31, 2021 10:59
[2021-08-31] MEDS ORDERED: AMLO2.5T4 PO (11:58)
--- NOTE | 2021-08-31 12:32 | Discharge Summary ---
Discharge Summary Hospital Course Problems/Diagnosis: (1) Elevated troponin Status: Acute Assessment & Plan: Cardiology consulted, started on treatment dose enoxaparin and DAPT, cath done and stent placed distal/overlapping previous RCA stent. (2) Hypertension Status: Chronic Assessment & Plan: Resume home meds, metoprolol and amlodipine per Cardiology recs. Qualifiers: Qualified Codes: I10 - Essential (primary) hypertension (3) Hyperlipidemia Status: Chronic Assessment & Plan: High intensity statin (4) Chronic kidney disease Status: Chronic Assessment & Plan: Stable Qualifiers: Qualified Codes: N18.31 - Chronic kidney disease, stage 3a (5) Coronary artery disease Status: Chronic Assessment & Plan: Cardiology consulted, appreciate recommendations Qualifiers: Qualified Codes: I25.110 - Atherosclerotic heart disease of [place] coronary artery with unstable angina pectoris (6) IDDM (insulin dependent diabetes mellitus) Status: Acute Assessment & Plan: Sliding scale insulin. (7) History of colon cancer Hospital Course Date of Admission: Aug 30, 2021 at 15:05 Admission Diagnosis : Family Physician/Provider: Elina Gavin Aprn Date of Discharge: 08/31/21 Discharge Diagnosis: See problem list Hospital Course: See problem list Labs and Pending Lab Test: Laboratory Tests 08/30/21 17:41: Glucometer 160H 08/31/21 01:01: Glucometer 173H 08/31/21 05:50: White Blood Count 9.7, Red Blood Count 4.13, Hemoglobin 12.1, Hematocrit 38, Mean Corpuscular Volume 91, Mean Corpuscular Hemoglobin 29, Mean Corpuscular Hemoglobin Concent 32, Red Cell Distribution Width 12.6, Platelet Count 243, Mean Platelet Volume 10.1, Immature Granulocyte % (Auto) 1, Neutrophils (%) (Auto) 71, Lymphocytes (%) (Auto) 17, Monocytes (%) (Auto) 11, Eosinophils (%) (Auto) 0, Basophils (%) (Auto) 0, Neutrophils # (Auto) 6.9, Lymphocytes # (Auto) 1.7, Monocytes # (Auto) 1.0, Eosinophils # (Auto) 0.0, Basophils # (Auto) 0.0, Immature Granulocyte # (Auto) 0.1, Sodium Level 138, Potassium Level 3.9, Chloride Level 106, Carbon Dioxide Level 17L, Anion Gap 15H, Blood Urea Nitrogen 17, Creatinine 1.22, Estimat Glomerular Filtration Rate 43, BUN/Creatinine Ratio 14, Glucose Level 169H, Calcium Level 8.6, Corrected Calcium 9.1, Total Bilirubin 0.4, Aspartate Amino Transf (AST/SGOT) 22, Alanine Aminotransferase (ALT/SGPT) 12, Alkaline Phosphatase 45, Total Protein 6.4, Albumin 3.4 08/31/21 11:43: Glucometer 164H Home Meds Active Amlodipine Besylate 2.5 Mg Tablet 2.5 Mg PO DAILY Children's Aspirin (Aspirin) 81 Mg Tab.chew 81 Mg PO DAILY 90 Days Clopidogrel (Clopidogrel Bisulfate) 75 Mg Tablet 75 Mg PO DAILY 90 Days Metoprolol Succinate 100 Mg Tab.er.24h 100 Mg PO DAILY Lipitor (Atorvastatin Calcium) 40 Mg Tablet 40 Mg PO HS Reported Fenofibrate 160 Mg Tablet 160 Mg PO DAILY Lisinopril 20 Mg Tablet 20 Mg PO DAILY Omeprazole 40 Mg Capsule.dr 40 Mg PO DAILY Humalog Kwikpen (Insulin Lispro) 200 Unit/1 Ml Insuln.pen 22 Unit SQ TIDAC Basaglar Kwikpen U-100 (Insulin Glargine,Hum.rec.anlog) 100 Unit/1 Ml Insuln.pen 34 Unit SQ BID Assessment/Pt DC Instructions Follow up with primary physician within a week of discharge. Follow up with Cardiology as directed. Discharge Diet: ADA Diet Discharge Physical Examination Allergies: Coded Allergies: No Known Drug Allergies (Unverified , 10/16/14) General Appearance: No Apparent Distress Respiratory: Lungs Clear, Normal Breath Sounds Cardiovascular: Regular Rate, Rhythm, No Murmur Skin: Normal Color, Warm/Dry Clinical Quality Measures AMI/AHF: ASA po Prior to arrival: JOHNATHON Honeycutt MD Aug 31, 2021 12:32
== END 2021-08-31 14:00 | disposition home or self-care (01) | DRG 247 ==
LOC: EDUNIT# 17:36 → ER 17:38 → CSD 21:28 → OBSVTOIN 08-30 15:05
PROVIDERS: ADMIT Family Medicine; ATTEND Family Medicine
PROC: 027035Z Dilation of Coronary Artery, One Artery with Two Drug-eluting Intraluminal Devices, Percutaneous Approach (ICD-10-PCS; principal; 2021-08-30)
PROC: 4A023N7 Measurement of Cardiac Sampling and Pressure, Left Heart, Percutaneous Approach (ICD-10-PCS; 2021-08-30)
PROC: B2111ZZ Fluoroscopy of Multiple Coronary Arteries using Low Osmolar Contrast (ICD-10-PCS; 2021-08-30)
PROC: B2151ZZ Fluoroscopy of Left Heart using Low Osmolar Contrast (ICD-10-PCS; 2021-08-30)
DX: I21.4 Non-ST elevation (NSTEMI) myocardial infarction (principal); I25.10 Atherosclerotic heart disease of native coronary artery without angina pectoris; E11.22 Type 2 diabetes mellitus with diabetic chronic kidney disease; I12.9 Hypertensive chronic kidney disease with stage 1 through stage 4 chronic kidney disease, or unspecified chronic kidney disease; N18.31 Chronic kidney disease, stage 3a; E78.00 Pure hypercholesterolemia, unspecified; K21.9 Gastro-esophageal reflux disease without esophagitis; M19.90 Unspecified osteoarthritis, unspecified site; G89.29 Other chronic pain; M54.9 Dorsalgia, unspecified; Z87.891 Personal history of nicotine dependence; Z79.4 Long term (current) use of insulin; Z79.899 Other long term (current) drug therapy; Z85.038 Personal history of other malignant neoplasm of large intestine; I25.2 Old myocardial infarction; Z90.49 Acquired absence of other specified parts of digestive tract
CPT/HCPCS: 36415; 71045; 80053; 80061; 82150; 82550; 82553; 82947; 83690; 83735; 83874; 83880; 84484; 85025; 85610; 85730; 93005; 93041; 93458

== ENCOUNTER → 2021-08-29 | Outpatient (CLI) | payer MEDICARE ==
[~2021-08-29] MED LIST changes: +AMLO2.5T4 PO; +ASPI81TA64 PO; +ATOR40TA PO; +CLOP75TA28 PO; +MTP100TCR PO
[2021-08-29 12:18] LABS: HEMATOCRIT 45 % (35-52); HEMOGLOBIN 14.3 g/dL (11.5-16.0); MEAN CORPUSCULAR HEMOGLOBIN 29 pg (25-34); MEAN CORPUSCULAR HGB CONC 32 g/dL (32-36); MEAN CORPUSCULAR VOLUME 91 fL (80-99); MEAN PLATELET VOLUME 9.7 fL (9.0-12.2); PLATELET COUNT 286 10^3/uL (130-400); WHITE BLOOD COUNT 10.7 10^3/uL (4.3-11.0)
[2021-08-29 12:47] LABS: BILIRUBIN,TOTAL 0.5 MG/DL (0.1-1.0); CALCIUM 9.6 MG/DL (8.5-10.1); CREATININE SERUM 1.35 MG/DL (0.60-1.30); MAGNESIUM 1.8 MG/DL (1.6-2.4); POTASSIUM 4.1 MMOL/L (3.6-5.0); TOTAL PROTEIN 7.5 GM/DL (6.4-8.2)
== END ==
LOC: LAB 11:52
PROVIDERS: ATTEND Nurse Practitioner Family
DX: R07.89 Other chest pain (principal); R06.02 Shortness of breath
CPT/HCPCS: 36415; 80053; 82553; 83735; 84484; 85027